=== PATIENT | male | born 1960 | race Caucasian/White ===

== ENCOUNTER 2018-05-13 17:47 | Emergency (ER) | payer BC ==
[2018-05-13 18:22] VITALS: RESP 16
[2018-05-13] MEDS ORDERED: MORPHINE SULFATE 2 MG/ML SYRINGE IVP STA (19:22)
[2018-05-13] MEDS ORDERED: KETOROLAC 30 MG/ML 1 ML VIAL IVP STA (19:22)
[2018-05-13] MEDS ORDERED: ACETAMINOPHEN TAB 500 MG TAB PO STA (19:22)
[2018-05-13] MEDS ORDERED: SODIUM CHLORIDE 0.9% 1,000 ML IV STA ×2 (19:22)
--- NOTE | 2018-05-13 19:31 | ED ---
Abdominal Pain HPI - General Source: patient, RN notes reviewed, old records reviewed Mode of arrival: ambulatory Limitations: no limitations <Lorena Arvizu - Last Filed: 05/13/18 20:41> <Emile Allison - Last Filed: 05/13/18 22:58> - General Chief Complaint: Abdominal Pain Stated Complaint: abd pain Time Seen by Provider: 05/13/18 19:10 - History of Present Illness Initial Comments: Patient is 57-year-old male with chief complaint of 3-4 days of left lower quadrant abdominal pain. He believes he has a flareup of his colitis. He's had intermittent fevers and chills. Reports she's had no dietary changes. He does state that he does travel a lot for work. He states that he did have some diarrhea and questions if it was bloody. Patient presents is generally healthy and no significant past medical history besides colitis. Patient arrives to emergency Department with fever 101. No vomiting. (Lorena Arvizu) - Related Data Home Medications Medication Instructions Recorded Confirmed Ibuprofen [Motrin Ib] 1,000 mg PO TID PRN 05/13/18 05/13/18 Previous Rx's Medication Instructions Recorded Ciprofloxacin HCl [Cipro] 500 mg PO Q12HR #14 tablet 05/13/18 metroNIDAZOLE [Flagyl] 500 mg PO TID #21 tab 05/13/18 Allergies Allergy/AdvReac Type Severity Reaction Status Date / Time codeine Allergy Unknown Verified 05/13/18 19:10 Review of Systems ROS Other: All systems not noted in ROS Statement are negative. <Lorena Arvizu - Last Filed: 05/13/18 20:41> ROS Other: All systems not noted in ROS Statement are negative. <Emile Allison - Last Filed: 05/13/18 22:58> ROS Statement: Those systems with pertinent positive or pertinent negative responses have been documented in the HPI. Past Medical History Additional Past Medical History / Comment(s): COLITIS History of Any Multi-Drug Resistant Organisms: None Reported Past Surgical History: No Surgical Hx Reported Past Psychological History: No Psychological Hx Reported Smoking Status: Current every day smoker Past Alcohol Use History: Daily Past Drug Use History: Marijuana <Lorena Arvizu - Last Filed: 05/13/18 20:41> General Exam Limitations: no limitations General appearance: alert, in no apparent distress Head exam: Present: atraumatic, normocephalic, normal inspection Eye exam: Present: normal appearance ENT exam: Present: normal exam, mucous membranes moist Neck exam: Present: normal inspection. Absent: tenderness, meningismus, lymphadenopathy Respiratory exam: Present: normal lung sounds bilaterally. Absent: respiratory distress, wheezes, rales, rhonchi, stridor Cardiovascular Exam: Present: regular rate, normal rhythm, normal heart sounds. Absent: systolic murmur, diastolic murmur, rubs, gallop, clicks GI/Abdominal exam: Present: soft, tenderness (Left lower quadrant suprapubic tenderness.), normal bowel sounds. Absent: distended, guarding, rebound, rigid Extremities exam: Present: normal inspection, full ROM, normal capillary refill. Absent: tenderness, pedal edema, joint swelling, calf tenderness Back exam: Present: normal inspection Neurological exam: Present: alert, oriented X3, CN II-XII intact Psychiatric exam: Present: normal affect, normal mood Skin exam: Present: warm, dry, intact, normal color. Absent: rash <Lorena Arvizu - Last Filed: 05/13/18 20:41> <Emile Allison - Last Filed: 05/13/18 22:58> - General Exam Comments Initial Comments: This patient's a 57-year-old male. Alert and oriented. Patient appears in no significant distress. Temperature 101.1. Heart rate of 112 bpm. Respiratory rate 16. Blood pressure 134/81. Pulse ox is 92% on room air. (Lorena Arvizu) Vital Signs 05/13/18 05/13/18 05/13/18 18:19 19:40 20:00 Temperature 99.2 F 101.1 F H Pulse Rate 112 H Respiratory 16 16 Rate Blood Pressure 134/86 134/81 134/81 O2 Sat by Pulse 95 92 L 94 L Oximetry 05/13/18 05/13/18 21:00 21:43 Temperature 98.5 F Pulse Rate Respiratory Rate Blood Pressure 143/86 O2 Sat by Pulse Oximetry Medical Decision Making - Lab Data Result diagrams: 05/13/18 19:35 05/13/18 19:35 <Lorena Arvizu - Last Filed: 05/13/18 20:41> - Lab Data Result diagrams: 05/13/18 19:35 05/13/18 19:35 <Emile Allison - Last Filed: 05/13/18 22:58> - Medical Decision Making This patient is a 57-year-old man with abdominal pain. His symptoms have improved markedly. When I reevaluate him he is declining any further analgesia , he is not having tenderness on the abdominal exam. The computed tomography scan does show probable colitis versus possible diverticulitis. Patient be given course of antibiotics and follow with the circuit clerk. We discussed appropriate further care and follow-up as well as return parameters. All questions answered. He does want to go home at this point. I saw this patient in conjunction with the physician surgical assistant certified. I performed independent history and physical exam. Agree with case management. (Emile Allison) - Lab Data Lab Results 05/13/18 05/13/18 05/13/18 Range/Units 19:35 19:35 19:35 WBC (3.8-10.6) k/uL RBC (4.30-5.90) m/uL Hgb (13.0-17.5) gm/dL Hct (39.0-53.0) % MCV (80.0-100.0) fL MCH (25.0-35.0) pg MCHC (31.0-37.0) g/dL RDW (11.5-15.5) % Plt Count (150-450) k/uL Neutrophils % % Lymphocytes % % Monocytes % % Eosinophils % % Basophils % % Neutrophils # (1.3-7.7) k/uL Lymphocytes # (1.0-4.8) k/uL Monocytes # (0-1.0) k/uL Eosinophils # (0-0.7) k/uL Basophils # (0-0.2) k/uL PT 10.2 (9.0-12.0) sec INR 1.0 (<1.2) APTT 26.8 (22.0-30.0) sec Sodium 140 (137-145) mmol/L Potassium 4.0 (3.5-5.1) mmol/L Chloride 109 H (98-107) mmol/L Carbon Dioxide 22 (22-30) mmol/L Anion Gap 9 mmol/L BUN 22 H (9-20) mg/dL Creatinine 1.09 (0.66-1.25) mg/dL Est GFR (CKD-EPI)AfAm 88 (>60 ml/min/1.73 sqM) Est GFR (CKD-EPI)NonAf 76 (>60 ml/min/1.73 sqM) Glucose 102 H (74-99) mg/dL Plasma Lactic Acid Walter 1.0 (0.7-2.0) mmol/L Calcium 9.3 (8.4-10.2) mg/dL Total Bilirubin 0.5 (0.2-1.3) mg/dL AST 23 (17-59) U/L ALT 27 (21-72) U/L Alkaline Phosphatase 59 (38-126) U/L Total Protein 7.5 (6.3-8.2) g/dL Albumin 4.4 (3.5-5.0) g/dL Amylase 64 (30-110) U/L Lipase 93 (23-300) U/L Urine Color Urine Appearance (Clear) Urine pH (5.0-8.0) Ur Specific [place] (1.001-1.035) Urine Protein (Negative) Urine Glucose (UA) (Negative) Urine Ketones (Negative) Urine Blood (Negative) Urine Nitrite (Negative) Urine Bilirubin (Negative) Urine Urobilinogen (<2.0) mg/dL Ur Leukocyte Esterase (Negative) Urine RBC (0-5) /hpf Urine WBC (0-5) /hpf 05/13/18 05/13/18 Range/Units 19:35 20:22 WBC 14.1 H (3.8-10.6) k/uL RBC 5.03 (4.30-5.90) m/uL Hgb 15.9 (13.0-17.5) gm/dL Hct 46.5 (39.0-53.0) % MCV 92.4 (80.0-100.0) fL MCH 31.6 (25.0-35.0) pg MCHC 34.1 (31.0-37.0) g/dL RDW 13.3 (11.5-15.5) % Plt Count 245 (150-450) k/uL Neutrophils % 75 % Lymphocytes % 17 % Monocytes % 5 % Eosinophils % 3 % Basophils % 0 % Neutrophils # 10.6 H (1.3-7.7) k/uL Lymphocytes # 2.3 (1.0-4.8) k/uL Monocytes # 0.7 (0-1.0) k/uL Eosinophils # 0.4 (0-0.7) k/uL Basophils # 0.0 (0-0.2) k/uL PT (9.0-12.0) sec INR (<1.2) APTT (22.0-30.0) sec Sodium (137-145) mmol/L Potassium (3.5-5.1) mmol/L Chloride (98-107) mmol/L Carbon Dioxide (22-30) mmol/L Anion Gap mmol/L BUN (9-20) mg/dL Creatinine (0.66-1.25) mg/dL Est GFR (CKD-EPI)AfAm (>60 ml/min/1.73 sqM) Est GFR (CKD-EPI)NonAf (>60 ml/min/1.73 sqM) Glucose (74-99) mg/dL Plasma Lactic Acid Walter (0.7-2.0) mmol/L Calcium (8.4-10.2) mg/dL Total Bilirubin (0.2-1.3) mg/dL AST (17-59) U/L ALT (21-72) U/L Alkaline Phosphatase (38-126) U/L Total Protein (6.3-8.2) g/dL Albumin (3.5-5.0) g/dL Amylase (30-110) U/L Lipase (23-300) U/L Urine Color Yellow Urine Appearance Clear (Clear) Urine pH 5.5 (5.0-8.0) Ur Specific [place] 1.019 (1.001-1.035) Urine Protein Negative (Negative) Urine Glucose (UA) Negative (Negative) Urine Ketones 1+ H (Negative) Urine Blood Small H (Negative) Urine Nitrite Negative (Negative) Urine Bilirubin Negative (Negative) Urine Urobilinogen <2.0 (<2.0) mg/dL Ur Leukocyte Esterase Negative (Negative) Urine RBC 2 (0-5) /hpf Urine WBC 1 (0-5) /hpf Disposition <Lorena Arvizu - Last Filed: 05/13/18 20:41> Is patient prescribed a controlled substance at d/c from ED?: No <Emile Allison - Last Filed: 05/13/18 22:58> Clinical Impression: Colitis, Abdominal pain Disposition: HOME SELF-CARE Condition: Good Instructions: Abdominal Pain (ED), Colitis (ED) Prescriptions: Ciprofloxacin HCl [Cipro] 500 mg PO Q12HR #14 tablet metroNIDAZOLE [Flagyl] 500 mg PO TID #21 tab Referrals: Kemal Young MD [Primary Care Provider] - 1-2 days Chaz Ponce MD [STAFF PHYSICIAN] - 1-2 days
[2018-05-13 19:51] LABS: Basophils % (A) 0 %; Eosinophils # (A) 0.4 k/uL (0-0.7); Eosinophils % (A) 3 %; HCT 46.5 % (39.0-53.0); HGB 15.9 gm/dL (13.0-17.5); Lymphocytes # (A) 2.3 k/uL (1.0-4.8); Lymphocytes % (A) 17 %; MCH 31.6 pg (25.0-35.0); MCHC 34.1 g/dL (31.0-37.0); MCV 92.4 fL (80.0-100.0); Mean Platelet Volume 6.7; Monocytes # (A) 0.7 k/uL (0-1.0); Monocytes % (A) 5 %; Neutrophils # (A) 10.6 k/uL (1.3-7.7); Neutrophils % (A) 75 %; Platelet Count 245 k/uL (150-450); RBC 5.03 m/uL (4.30-5.90); RDW 13.3 % (11.5-15.5); WBC 14.1 k/uL (3.8-10.6)
[2018-05-13 20:00] LABS: Partial Thromboplastin Time 26.8 sec (22.0-30.0); Prothrombin Time 10.2 sec (9.0-12.0)
[2018-05-13 20:03] LABS: Albumin 4.4 g/dL (3.5-5.0); Calcium 9.3 mg/dL (8.4-10.2); Total Bilirubin 0.5 mg/dL (0.2-1.3); Total Protein 7.5 g/dL (6.3-8.2)
[2018-05-13 20:35] LABS: Appearance,Urine Clear (Clear); Bilirubin,Urine Negative (Negative); Blood,Urine Small (Negative); Color,Urine Yellow; Glucose,Urine (UA) Negative (Negative); Ketones,Urine 1+ (Negative); Leukocyte Esterase,Urine Negative (Negative); Nitrite,Urine Negative (Negative); PH, Urine 5.5 (5.0-8.0); Protein,Urine Negative (Negative); RBC,Urine 2 /hpf (0-5); Specific Gravity,Urine 1.019 (1.001-1.035); Urobilinogen,Urine <2.0 mg/dL (<2.0); WBC,Urine 1 /hpf (0-5)
--- NOTE | 2018-05-13 21:14 | CT ---
EXAMINATION TYPE: CT abdomen pelvis w con DATE OF EXAM: 05/13/2018 COMPARISON: 10/11/2009 HISTORY: Abdominal pain CT DLP: mGycm Automated exposure control for dose reduction was used. TECHNIQUE: Helical acquisition of images was performed from the lung bases through the pelvis. CONTRAST: The contrast was Isovue 100 mL. FINDINGS: There is mild subsegmental atelectasis at the lung bases. Heart size is normal. Liver shows no focal defect. Spleen appears normal. There is no pancreatic mass. Gallbladder appears normal. Bile ducts are not dilated. There is no adrenal mass. Kidneys show satisfactory contrast opacification. There is no hydronephrosi s. Ureters are not dilated. There is no retroperitoneal adenopathy. Abdominal aorta shows mild athero matous change. There is no inguinal hernia. Bladder distends smoothly. There is no pelvic mass. There are small inguinal hernia that contains fat. There is no evidence of a bowel obstruction. Appendix appears normal. There is some fat stranding in the rectosigmoid colon. There is mild wall thickening of the rectosigmoid colon. There are a few dive rticula. The lumbar vertebra have normal alignment. There is no compression fracture. There is multilevel spon dylotic change. The bony pelvis appears intact. There is no mesenteric adenopathy. There is no ascites. There is no sign of free air. IMPRESSION: There is diffuse thickening of the rectosigmoid colon with fat stranding consistent with colitis that is similar to the old exam. Diverticulitis is possible. No evidence of an abscess.
[2018-05-13] MEDS ORDERED: LEVOFLOXACIN 750 MG TAB PO STA (22:50)
[2018-05-13] MEDS ORDERED: metroNIDAZOLE 500 MG TAB PO STA (22:50)
[2018-05-13 23:22] VITALS: BP 111/67; PULSE 77; TEMP 98.3
== END 2018-05-13 23:29 | disposition home or self-care (01) ==
LOC: EC 17:47
DX: K52.9 Noninfective gastroenteritis and colitis, unspecified (principal); F17.200 Nicotine dependence, unspecified, uncomplicated; Z88.5 Allergy status to narcotic agent
CPT/HCPCS: 36415; 80053; 82150; 83605; 83690; 85025; 85610; 85730; 81001; 87040; 74177; 99285; 96365; 96375 ×2; 96361 ×3; J0696; J1885; J2270; Q9967

== ENCOUNTER 2023-09-30 18:05 | Emergency (ER) | payer BC, OTHER ==
--- NOTE | 2023-09-30 18:20 | ED ---
Abdominal Pain HPI - General Source: patient, family, RN notes reviewed Mode of arrival: ambulatory Limitations: no limitations <Teresa Mitchell - Last Filed: 09/30/23 18:19> - General Source: patient, RN notes reviewed, old records reviewed <Josh Carty - Last Filed: 09/30/23 20:54> <Aly Young - Last Filed: 09/30/23 22:57> - General Stated Complaint: Abdominal Pain Time Seen by Provider: 09/30/23 18:19 - History of Present Illness Initial Comments: Patient: Patient is a 62-year-old male presented to the ER with a chief complaint of lower abdominal pain. He states he has a history of colitis and reports he ate bad chicken yesterday. He has not eaten anything in the past 24 hours. He states he is also had not had a bowel movement. Denies any fevers, chills, nausea, vomiting. (Teresa Mitchell) Patient is a 62-year-old male that was originally evaluated as a quick note. Presents emergency department complaining of lower abdominal pain. Has a history of colitis and believes this is what is causing it. Denies any fevers or chills. Endorses some diarrhea as well as nausea and nonbilious nonbloody emesis. Also endorses no blood in his stool. He is not on thinners. Pain has been present for 1 day. Has less of an appetite. Presents for further evaluation. (Josh Carty) - Related Data Home Medications Medication Instructions Recorded Confirmed Ibuprofen [Motrin Ib] 1,000 mg PO TID PRN 05/13/18 05/13/18 Previous Rx's Medication Instructions Recorded Ciprofloxacin HCl [Cipro] 500 mg PO Q12HR #14 tablet 05/13/18 metroNIDAZOLE [Flagyl] 500 mg PO TID #21 tab 05/13/18 HYDROcodone/APAP 5-325MG [Thiells 1 tab PO Q6HR PRN 3 Days #12 tab 09/30/23 5-325] Allergies Allergy/AdvReac Type Severity Reaction Status Date / Time codeine Allergy Unknown Verified 05/13/18 19:10 Review of Systems ROS Other: All systems not noted in ROS Statement are negative. <Teresa Mitchell - Last Filed: 09/30/23 18:19> ROS Other: All systems not noted in ROS Statement are negative. <Josh Carty - Last Filed: 09/30/23 20:54> ROS Other: All systems not noted in ROS Statement are negative. <Aly Young - Last Filed: 09/30/23 22:57> ROS Statement: Those systems with pertinent positive or pertinent negative responses have been documented in the HPI. Review of Systems: CONST: Denies fever EYES: Denies blurry vision ENT: Denies nasal congestion C/V: Denies Chest pain RESP: Denies shortness of breath GI: Endorses abdominal pain : Denies dysuria SKIN: Denies rash. MSK: Denies joint pain. NEURO: Denies headache (Josh Carty) Past Medical History Additional Past Medical History / Comment(s): COLITIS History of Any Multi-Drug Resistant Organisms: None Reported Past Surgical History: No Surgical Hx Reported Past Psychological History: No Psychological Hx Reported Past Alcohol Use History: Daily Past Drug Use History: Marijuana <Teresa Mitchell - Last Filed: 09/30/23 18:19> General Exam <Teresa Mitchell - Last Filed: 09/30/23 18:19> <Josh Carty - Last Filed: 09/30/23 20:54> - General Exam Comments Initial Comments: Visual Physical Exam Vital signs reviewed General: Well-appearing, nontoxic, no acute distress. Head: Normocephalic, atraumatic Eyes: PERRLA, EOMI ENT: Airway patent Chest: Nonlabored breathing Skin: No visual rash, normal skin tone Neuro: Alert and oriented 3 Musculoskeletal: No gross abnormalities (Teresa Mitchell) General: Appears in mild distress. HEAD: Normal with no signs of head trauma. EYES: PERRLA, EOMI, conjunctiva normal, no discharge. ENT: Hearing grossly intact, normal oropharynx. RESPIRATORY: Clear breath sounds bilaterally. No wheezes, rales, or rhonchi. C/V: Regular rate and rhythm. S1 and S2 auscultated, no edema, peripheral pulses 2+ and intact throughout ABD: Abdomen soft, nondistended. Tender to palpation bilateral lower quadrants and suprapubic region. No guarding. No rebound tenderness. No peritoneal signs. EXT: Normal range of motion, no obvious deformity SKIN: No rashes or lesions observed on exposed skin. NEURO: Alert and oriented x 4. (Josh Carty) Course Vital Signs 09/30/23 09/30/23 09/30/23 18:28 20:47 21:50 Temperature 98 F Pulse Rate 101 H 64 79 Respiratory 20 26 H 13 Rate Blood Pressure 136/76 119/84 116/85 O2 Sat by Pulse 95 96 97 Oximetry Medical Decision Making <Teresa Mitchell - Last Filed: 09/30/23 18:19> - Lab Data Result diagrams: 09/30/23 18:39 09/30/23 18:39 <Josh Carty - Last Filed: 09/30/23 20:54> - Lab Data Result diagrams: 09/30/23 18:39 09/30/23 18:39 <Aly Young - Last Filed: 09/30/23 22:57> - Medical Decision Making I performed the quick note portion of this chart. Electronically signed by Teresa Mitchell PA-C (Teresa Mitchell) Was pt. sent in by a medical professional or institution ([facility], [facility], urgent care, hospital, or senior care...) When possible be specific @ -No Did you speak to anyone other than the patient for history (EMS, parent, family, police, friend...)? What history was obtained from this source @ -No Did you review nursing and triage notes (agree or disagree)? Why? @ -I reviewed and agree with nursing and triage notes Were old charts reviewed (outside hosp., previous admission, EMS record, old EKG, old radiological studies, urgent care reports/EKG's, senior care records)? Report findings @ -Old charts reviewed Differential Diagnosis (chest pain, altered mental status, abdominal pain women, abdominal pain men, vaginal bleeding, weakness, fever, dyspnea, syncope, headache, dizziness, GI bleed, back pain, seizure, CVA, palpatations, mental health, musculoskeletal)? @ -Differential Abdominal Pain Men: Appendicitis, cholecystitis, diverticulosis, ischemic bowel, pancreatitis, hepatitis, UTI, gastroenteritis, AAA, incarcerated hernia, bowel obstruction, constipation, inflammatory bowel, hepatitis, peptic ulcer disease, splenic infarction, perforated viscus, testicular torsion, this is not meant to be an all-inclusive list EKG interpreted by me (3pts min.). @ -As above X-rays interpreted by me (1pt min.). @ -None done CT interpreted by me (1pt min.). @ -Pending U/S interpreted by me (1pt. min.). @ -None done What testing was considered but not performed or refused? (CT, X-rays, U/S, labs)? Why? @ -None What meds were considered but not given or refused? Why? @ -None Did you discuss the management of the patient with other professionals (professionals i.e. , PA, [facility], lab, RT, psych nurse, social media strategist, transportation planning engineer, teacher, guest services officer, returned case inspector)? Give summary @ -No Was smoking cessation discussed for >3mins.? @ -No Was critical care preformed (if so, how long)? @ -No Were there social determinants of health that impacted care today? How? (Homelessness, low income, unemployed, alcoholism, drug addiction, transportation, low edu. Level, literacy, decrease access to med. care, prison, rehab)? @ -No Was there de-escalation of care discussed even if they declined (Discuss DNR or withdrawal of care, Hospice)? DNR status @ -No What co-morbidities impacted this encounter? (DM, HTN, Smoking, COPD, CAD, Cancer, CVA, ARF, Chemo, Hep., AIDS, mental health diagnosis, sleep apnea, morbid obesity)? @ -Colitis Was patient admitted / discharged? Hospital course, mention meds given and route, prescriptions, significant lab abnormalities, going to OR and other pertinent info. @ -Based on patient's presentation and physical exam, presents with lower abdominal pain. Started yesterday. Exam unremarkable. Workup started as a quick note. Patient will be symptomatically treated with IV fluids, Zofran, Protonix, morphine. Will obtain a CT abdomen pelvis as well. Patient was in agreement this plan. Patient's laboratory studies are remarkable for slight leukocytosis of 11.6. Remainder the laboratory studies unremarkable. CT read is pending at this time. Signed out to Dr. Young pending results of imaging. Undiagnosed new problem with uncertain prognosis? @ -No Drug Therapy requiring intensive monitoring for toxicity (Heparin, Nitro, Insulin, Cardizem)? @ -No Were any procedures done? @ -No (Josh Carty) Patient care signed out to me by previous shift physician, Dr. Carty. Briefly, patient 62-year-old male with history of colitis presents to the emergency department for abdominal pain. Labs are unremarkable. Patient given analgesics. Plan at signout was to follow-up with pending imaging. CT abdomen pelvis read by radiology and reviewed by myself showing colitis. Patient reevaluated at bedside at 10:55 PM. He has a nonsurgical abdomen on repeat abdominal exam. Patient well-appearing. Disposition options are discussed. He is agreeable for discharge. Patient does not have a primary care doctor. Patient given referral to primary care doctor and also referral to GI specialist. He has had a colonoscopy 3 years ago which he reports was unremarkable. (Aly Young) - Lab Data Lab Results 09/30/23 09/30/23 09/30/23 Range/Units 18:39 18:39 18:39 WBC 11.6 H (3.8-10.6) k/uL RBC 4.25 L (4.30-5.90) m/uL Hgb 14.0 (13.0-17.5) gm/dL Hct 40.3 (39.0-53.0) % MCV 94.7 (80.0-100.0) fL MCH 33.0 (25.0-35.0) pg MCHC 34.8 (31.0-37.0) g/dL RDW 12.5 (11.5-15.5) % Plt Count 215 (150-450) k/uL MPV 8.1 Neutrophils % 82 % Lymphocytes % 12 % Monocytes % 4 % Eosinophils % 1 % Basophils % 0 % Neutrophils # 9.4 H (1.3-7.7) k/uL Lymphocytes # 1.4 (1.0-4.8) k/uL Monocytes # 0.5 (0-1.0) k/uL Eosinophils # 0.1 (0-0.7) k/uL Basophils # 0.0 (0-0.2) k/uL Sodium 136 L (137-145) mmol/L Potassium 3.8 (3.5-5.1) mmol/L Chloride 106 (98-107) mmol/L Carbon Dioxide 21 L (22-30) mmol/L Anion Gap 9 mmol/L BUN 14 (9-20) mg/dL Creatinine 0.81 (0.66-1.25) mg/dL Est GFR (CKD-EPI)AfAm >90 (>60 ml/min/1.73 sqM) Est GFR (CKD-EPI)NonAf >90 (>60 ml/min/1.73 sqM) Glucose 112 H (74-99) mg/dL Plasma Lactic Acid Walter (0.7-2.0) mmol/L Calcium 8.8 (8.4-10.2) mg/dL Total Bilirubin 0.8 (0.2-1.3) mg/dL AST 21 (17-59) U/L ALT 16 (4-49) U/L Alkaline Phosphatase 79 (38-126) U/L Total Protein 6.7 (6.3-8.2) g/dL Albumin 4.0 (3.5-5.0) g/dL Amylase 52 (30-110) U/L Lipase 48 (23-300) U/L Urine Color Yellow Urine Appearance Clear (Clear) Urine pH 5.5 (5.0-8.0) Ur Specific [place] 1.021 (1.001-1.035) Urine Protein Trace H (Negative) Urine Glucose (UA) Negative (Negative) Urine Ketones 1+ H (Negative) Urine Blood Small H (Negative) Urine Nitrite Negative (Negative) Urine Bilirubin Negative (Negative) Urine Urobilinogen <2.0 (<2.0) mg/dL Ur Leukocyte Esterase Negative (Negative) Urine RBC 1 (0-5) /hpf Urine WBC 2 (0-5) /hpf Ur Squamous Epith Cells <1 (0-4) /hpf Urine Mucus Occasional H (None) /hpf 09/30/23 Range/Units 18:39 WBC (3.8-10.6) k/uL RBC (4.30-5.90) m/uL Hgb (13.0-17.5) gm/dL Hct (39.0-53.0) % MCV (80.0-100.0) fL MCH (25.0-35.0) pg MCHC (31.0-37.0) g/dL RDW (11.5-15.5) % Plt Count (150-450) k/uL MPV Neutrophils % % Lymphocytes % % Monocytes % % Eosinophils % % Basophils % % Neutrophils # (1.3-7.7) k/uL Lymphocytes # (1.0-4.8) k/uL Monocytes # (0-1.0) k/uL Eosinophils # (0-0.7) k/uL Basophils # (0-0.2) k/uL Sodium (137-145) mmol/L Potassium (3.5-5.1) mmol/L Chloride (98-107) mmol/L Carbon Dioxide (22-30) mmol/L Anion Gap mmol/L BUN (9-20) mg/dL Creatinine (0.66-1.25) mg/dL Est GFR (CKD-EPI)AfAm (>60 ml/min/1.73 sqM) Est GFR (CKD-EPI)NonAf (>60 ml/min/1.73 sqM) Glucose (74-99) mg/dL Plasma Lactic Acid Walter 0.9 (0.7-2.0) mmol/L Calcium (8.4-10.2) mg/dL Total Bilirubin (0.2-1.3) mg/dL AST (17-59) U/L ALT (4-49) U/L Alkaline Phosphatase (38-126) U/L Total Protein (6.3-8.2) g/dL Albumin (3.5-5.0) g/dL Amylase (30-110) U/L Lipase (23-300) U/L Urine Color Urine Appearance (Clear) Urine pH (5.0-8.0) Ur Specific [place] (1.001-1.035) Urine Protein (Negative) Urine Glucose (UA) (Negative) Urine Ketones (Negative) Urine Blood (Negative) Urine Nitrite (Negative) Urine Bilirubin (Negative) Urine Urobilinogen (<2.0) mg/dL Ur Leukocyte Esterase (Negative) Urine RBC (0-5) /hpf Urine WBC (0-5) /hpf Ur Squamous Epith Cells (0-4) /hpf Urine Mucus (None) /hpf Disposition <Teresa Mitchell - Last Filed: 09/30/23 18:19> <Josh Carty - Last Filed: 09/30/23 20:54> Is patient prescribed a controlled substance at d/c from ED?: Yes If prescribed controlled substance>3 days was MAPS reviewed?: Prescribed <3 Days Time of Disposition: 22:56 <Aly Young - Last Filed: 09/30/23 22:57> Clinical Impression: Colitis Disposition: HOME SELF-CARE Condition: Good Instructions (If sedation given, give patient instructions): Colitis (ED) Prescriptions: HYDROcodone/APAP 5-325MG [[place] 5-325] 1 tab PO Q6HR PRN 3 Days #12 tab PRN Reason: Severe Pain Referrals: Andre Fields DO [REFERRING] - 1-2 days Bell Jovel MD [STAFF PHYSICIAN] - 1-2 days
[2023-09-30 18:57] VITALS: TEMP 98
[2023-09-30 19:13] LABS: Appearance,Urine Clear (Clear); Bilirubin,Urine Negative (Negative); Blood,Urine Small (Negative); Color,Urine Yellow; Glucose,Urine (UA) Negative (Negative); Ketones,Urine 1+ (Negative); Leukocyte Esterase,Urine Negative (Negative); Mucus,Urine Occasional /hpf; Nitrite,Urine Negative (Negative); PH, Urine 5.5 (5.0-8.0); Protein,Urine Trace (Negative); RBC,Urine 1 /hpf (0-5); Specific Gravity,Urine 1.021 (1.001-1.035); Squamous Epithelial Cell,Urine <1 /hpf (0-4); Urobilinogen,Urine <2.0 mg/dL (<2.0); WBC,Urine 2 /hpf (0-5)
[2023-09-30 19:16] LABS: Basophils % (A) 0 %; Eosinophils # (A) 0.1 k/uL (0-0.7); Eosinophils % (A) 1 %; HCT 40.3 % (39.0-53.0); Lymphocytes # (A) 1.4 k/uL (1.0-4.8); Lymphocytes % (A) 12 %; MCHC 34.8 g/dL (31.0-37.0); MCV 94.7 fL (80.0-100.0); Mean Platelet Volume 8.1; Monocytes # (A) 0.5 k/uL (0-1.0); Monocytes % (A) 4 %; Neutrophils # (A) 9.4 k/uL (1.3-7.7); Neutrophils % (A) 82 %; Platelet Count 215 k/uL (150-450); RBC 4.25 m/uL (4.30-5.90); RDW 12.5 % (11.5-15.5); WBC 11.6 k/uL (3.8-10.6)
[2023-09-30 19:17] LABS: ALT 16 U/L (4-49); AST 21 U/L (17-59); African American GFR (CKD) >90 (>60 ml/min/1.73 sqM); Alkaline Phosphatase 79 U/L (38-126); Amylase 52 U/L (30-110); Anion Gap 9 mmol/L; Blood Urea Nitrogen 14 mg/dL (9-20); Calcium 8.8 mg/dL (8.4-10.2); Carbon Dioxide 21 mmol/L (22-30); Chloride 106 mmol/L (98-107); Glucose 112 mg/dL (74-99); Lipase 48 U/L (23-300); Non-African American GFR(CKD) >90 (>60 ml/min/1.73 sqM); Potassium 3.8 mmol/L (3.5-5.1); Sodium 136 mmol/L (137-145); Total Bilirubin 0.8 mg/dL (0.2-1.3); Total Protein 6.7 g/dL (6.3-8.2)
[2023-09-30] MEDS: ONDANSETRON 4 MG/2 ML VIAL IVP STA (20:38)
[2023-09-30] MEDS: MORPHINE SULFATE 4 MG/ML SYRINGE IVP STA (20:39)
[2023-09-30] MEDS: SODIUM CHLORIDE 0.9% 1,000 ML IV STA (20:39)
[2023-09-30] MEDS: PANTOPRAZOLE 40 MG/10 ML VIAL IVP STA (20:39)
[2023-09-30 22:04] VITALS: RESP 13
--- NOTE | 2023-09-30 22:29 | CT ---
EXAMINATION TYPE: CT abdomen pelvis w con CT DLP: 1066.9 mGycm, Automated exposure control for dose reduction was used. DATE OF EXAM: 09/30/2023 7:55 PM COMPARISON: None. CLINICAL INDICATION:Male, 62 years old with history of abdominal pain; Lower abdominal pain. History of colitis. TECHNIQUE: Axial CT of the abdomen and pelvis. Sagittal and coronal reformats were created on a [employer] workstation. Contrast used:100 ml mL of Isovue 370 with IV Contrast, (none if empty) Oral contrast used: without Oral Contrast (none if empty) FINDINGS: LOWER CHEST: Mild dependent atelectatic changes without acute lung infiltrate. Normal heart size. Par tially visualized moderate coronary artery calcifications. Small sliding hiatal hernia. ABDOMEN LIVER: Unremarkable GALLBLADDER AND BILE DUCTS: Unremarkable gallbladder. No biliary ductal dilatation. PANCREAS: Unremarkable. SPLEEN: Unremarkable. ADRENAL GLANDS: Unremarkable. KIDNEYS AND URETERS: Kidneys enhance symmetrically. No evidence of hydronephrosis or visible renal ca lculus. The ureters are unremarkable. PELVIS BLADDER: Nondistended with a mildly thickened appearance of its wall. REPRODUCTIVE: Nonenlarged prostate with a few parenchymal calcifications. ABDOMEN & PELVIS STOMACH AND BOWEL: Stomach and small bowel are nondistended, no evidence of obstruction. Appendix c ontains some scattered intraluminal gas, does not appear dilated or inflamed. There is mild to modera te stool throughout the proximal aspects of the colon. Beginning near the descending/sigmoid junction , there is relatively long segment wall thickening which extends to near the rectosigmoid junction, w ith mild pericolonic fat stranding, most suggestive of colitis. There are some interspersed diverticu la in this area but these appear less likely to be the cause of these changes. PERITONEUM/RETROPERITONEUM: No evidence of pneumoperitoneum or free fluid. VASCULATURE: Moderate atherosclerotic calcifications are present throughout the abdominal aorta and i ts branches. No evidence of aortic aneurysm. Portal veins are enhancing. Splenic vein is patent. LYMPH NODES: No enlarged lymph nodes by CT criteria. SOFT TISSUE/ABDOMINAL WALL: Small fat-containing bilateral inguinal hernias. MUSCULOSKELETAL: No acute osseous abnormalities. Moderate disc degeneration changes are present throu ghout the thoracolumbar spine with mild levoscoliosis and straightening of the normal lumbar lordosis . IMPRESSION: 1. Findings suggesting nonspecific colitis, present throughout the sigmoid region. Recommend correla tion with findings of colonoscopy when appropriate to exclude any underlying mass. 2. Mildly thickened appearance of the urinary bladder wall, could be due to incomplete distention or bladder wall hypertrophy, but correlate clinically to exclude cystitis.
[2023-09-30 23:38] VITALS: BP 119/74; PULSE 74
== END 2023-09-30 23:14 | disposition home or self-care (01) ==
LOC: EC 18:05
DX: K52.9 Noninfective gastroenteritis and colitis, unspecified (principal); F12.90 Cannabis use, unspecified, uncomplicated; Z88.5 Allergy status to narcotic agent
CPT/HCPCS: 36415; 80053; 82150; 83605; 83690; 85025; 81001; 74177; 99285; 96374; 96375 ×2; 96361; J2270; J2405; C9113; Q9967

== ENCOUNTER 2024-03-13 12:57 | Inpatient (IN) | payer BC ==
--- NOTE | 2024-03-13 13:25 | ED ---
General Adult HPI - General Chief complaint: Chest Pain Stated complaint: Chest pain Time Seen by Provider: 03/13/24 13:06 Source: patient, RN notes reviewed Mode of arrival: ambulatory Limitations: no limitations - History of Present Illness Initial comments: Patient is a 63-year-old male present to the emergency department with concern with chest discomfort. Onset of symptoms was around 3 weeks ago. Symptoms have been intermittent. Symptoms are exertional. Discomfort feels like pressure or tightness with some radiation towards the back. No associated dyspnea. Patient has had some nausea. No diaphoresis. No history of similar symptoms pre viously. Discomfort currently is 1/10. When severe discomfort does get up to 8 or 9/10. - Related Data Home Medications Medication Instructions Recorded Confirmed Ibuprofen [Motrin Ib] 1,000 mg PO TID PRN 05/13/18 05/13/18 Previous Rx's Medication Instructions Recorded Ciprofloxacin HCl [Cipro] 500 mg PO Q12HR #14 tablet 05/13/18 metroNIDAZOLE [Flagyl] 500 mg PO TID #21 tab 05/13/18 HYDROcodone/APAP 5-325MG [[place] 1 tab PO Q6HR PRN 3 Days #12 tab 09/30/23 5-325] Allergies Allergy/AdvReac Type Severity Reaction Status Date / Time codeine Allergy Unknown Verified 03/13/24 13:00 Review of Systems ROS Statement: Those systems with pertinent positive or pertinent negative responses have been documented in the HPI. ROS Other: All systems not noted in ROS Statement are negative. Constitutional: Denies: fever Eyes: Denies: eye pain ENT: Denies: ear pain Respiratory: Denies: cough Cardiovascular: Reports: as per HPI, chest pain Gastrointestinal: Reports: nausea. Denies: abdominal pain Musculoskeletal: Reports: as per HPI Past Medical History Additional Past Medical History / Comment(s): COLITIS, gout History of Any Multi-Drug Resistant Organisms: None Reported Past Surgical History: No Surgical Hx Reported Past Psychological History: No Psychological Hx Reported Past Alcohol Use History: Daily Past Drug Use History: Marijuana General Exam Limitations: no limitations General appearance: alert, in no apparent distress Head exam: Present: normocephalic Eye exam: Present: normal appearance Neck exam: Present: normal inspection Respiratory exam: Present: normal lung sounds bilaterally Cardiovascular Exam: Present: regular rate, normal rhythm, normal heart sounds Expanded Peripheral pulses: 2+: Radial (R), Radial (L), Posterior Tibialis (R), Posterior Tibialis (L) GI/Abdominal exam: Present: soft. Absent: tenderness Extremities exam: Present: normal inspection. Absent: pedal edema, calf tenderness Back exam: Present: normal inspection Neurological exam: Present: alert Psychiatric exam: Present: normal affect, normal mood Skin exam: Present: normal color Course Vital Signs 03/13/24 12:58 Temperature 98.7 F Pulse Rate 98 Respiratory 16 Rate Blood Pressure 145/86 O2 Sat by Pulse 94 L Oximetry EKG Findings - EKG Results: EKG: interpreted by ERMD, sinus rhythm, normal axis, normal QRS, normal ST/T Medical Decision Making - Medical Decision Making Was pt. sent in by a medical professional or institution (, PA, GAS ENGINEER, urgent care, hospital, or prison...) When possible be specific @ -No Did you speak to anyone other than the patient for history (EMS, parent, family, police, friend...)? What history was obtained from this source @ -No Did you review nursing and triage notes (agree or disagree)? Why? @ -I reviewed and agree with nursing and triage notes Were old charts reviewed (outside hosp., previous admission, EMS record, old EKG, old radiological studies, urgent care reports/EKG's, prison records)? Report findings @ -No old charts were reviewed Differential Diagnosis (chest pain, altered mental status, abdominal pain women, abdominal pain men, vaginal bleeding, weakness, fever, dyspnea, syncope, headache, dizziness, GI bleed, back pain, seizure, CVA, palpatations, mental health, musculoskeletal)? @ -Differential Chest Pain: Stable Angina, Unstable Angina, STEMI, NSTEMI Aortic Dissection, Pneumothorax, Musculoskeletal, Esophageal Spasm GERD, Cholecystitis, Pancreatitis, Zoster, this is not meant to be an all-inclusive list. EKG interpreted by me (3pts min.). @ -As above X-rays interpreted by me (1pt min.). @ -Chest x-ray does not reveal acute abnormality CT interpreted by me (1pt min.). @ -None done U/S interpreted by me (1pt. min.). @ -None done What testing was considered but not performed or refused? (CT, X-rays, U/S, labs)? Why? @ -None What meds were considered but not given or refused? Why? @ -None Did you discuss the management of the patient with other professionals (professionals i.e. DrRamos, PA, GAS ENGINEER, lab, RT, psych nurse, social insurance adviser, investment broker, teacher, protocol officer, case worker)? Give summary @ -Case was discussed with Dr. Eason who will admit covering hospital call Was smoking cessation discussed for >3mins.? @ -No Was critical care preformed (if so, how long)? @ -32 minutes cc Were there social determinants of health that impacted care today? How? (Homelessness, low income, unemployed, alcoholism, drug addiction, transportation, low edu. Level, literacy, decrease access to med. care, penitentiary, rehab)? @ -No Was there de-escalation of care discussed even if they declined (Discuss DNR or withdrawal of care, Hospice)? DNR status @ -No What co-morbidities impacted this encounter? (DM, HTN, Smoking, COPD, CAD, Cancer, CVA, ARF, Chemo, Hep., AIDS, mental health diagnosis, sleep apnea, morbid obesity)? @ -None Was patient admitted / discharged? Hospital course, mention meds given and route, prescriptions, significant lab abnormalities, going to OR and other pertinent info. @ -Patient presents with progressive symptoms of chest discomfort worse with exertion. Patient has calcifications on CT. Troponin is mildly elevated. Patient will be admitted with cardiac consult, admission orders written. Hepa rin will be started. Undiagnosed new problem with uncertain prognosis? @ -No Drug Therapy requiring intensive monitoring for toxicity (Heparin, Nitro, Insulin, Cardizem)? @ -Drip will be started Were any procedures done? @ -No Diagnosis/symptom? @ -Acute coronary syndrome Acute, or Chronic, or Acute on Chronic? @ -Acute Uncomplicated (without systemic symptoms) or Complicated (systemic symptoms)? @ -Complicated with mild elevation of troponin Side effects of treatment? @ -No Exacerbation, Progression, or Severe Exacerbation? @ -No Poses a threat to life or bodily function? How? (Chest pain, [place], NC, pneumonia, PE, COPD, DKA, ARF, appy, cholecystitis, CVA, Diverticulitis, Homicidal, S uicidal, threat to staff... and all critical care pts) @ -To cardiac function - Lab Data Result diagrams: 03/13/24 13:33 03/13/24 13:33 Lab Results 03/13/24 03/13/24 03/13/24 Range/Units 13:33 13:33 13:33 WBC 6.0 (3.8-10.6) k/uL RBC 4.43 (4.30-5.90) m/uL Hgb 14.9 (13.0-17.5) gm/dL Hct 42.1 (39.0-53.0) % MCV 95.0 (80.0-100.0) fL MCH 33.5 (25.0-35.0) pg MCHC 35.3 (31.0-37.0) g/dL RDW 12.5 (11.5-15.5) % Plt Count 270 (150-450) k/uL MPV 6.9 Neutrophils % 62 % Lymphocytes % 27 % Monocytes % 5 % Eosinophils % 5 % Basophils % 0 % Neutrophils # 3.7 (1.3-7.7) k/uL Lymphocytes # 1.6 (1.0-4.8) k/uL Monocytes # 0.3 (0-1.0) k/uL Eosinophils # 0.3 (0-0.7) k/uL Basophils # 0.0 (0-0.2) k/uL PT 12.0 (10.0-12.5) sec INR 1.1 (<1.2) APTT 28.6 (22.0-30.0) sec D-Dimer 1.32 H (<0.60) mg/L FEU Sodium 138 (137-145) mmol/L Potassium 3.8 (3.5-5.1) mmol/L Chloride 102 (98-107) mmol/L Carbon Dioxide 27 (22-30) mmol/L Anion Gap 9 mmol/L BUN 13 (9-20) mg/dL Creatinine 0.87 (0.66-1.25) mg/dL Est GFR (CKD-EPI)AfAm >90 (>60 ml/min/1.73 sqM) Est GFR (CKD-EPI)NonAf >90 (>60 ml/min/1.73 sqM) Glucose 144 H (74-99) mg/dL Calcium 9.3 (8.4-10.2) mg/dL Magnesium 1.7 (1.6-2.3) mg/dL Total Bilirubin 0.5 (0.2-1.3) mg/dL AST 25 (17-59) U/L ALT 13 (4-49) U/L Alkaline Phosphatase 56 (38-126) U/L Troponin I (0.000-0.034) ng/mL Total Protein 6.7 (6.3-8.2) g/dL Albumin 4.1 (3.5-5.0) g/dL Amylase 52 (30-110) U/L Lipase 85 (23-300) U/L 03/13/24 Range/Units 13:33 WBC (3.8-10.6) k/uL RBC (4.30-5.90) m/uL Hgb (13.0-17.5) gm/dL Hct (39.0-53.0) % MCV (80.0-100.0) fL MCH (25.0-35.0) pg MCHC (31.0-37.0) g/dL RDW (11.5-15.5) % Plt Count (150-450) k/uL MPV Neutrophils % % Lymphocytes % % Monocytes % % Eosinophils % % Basophils % % Neutrophils # (1.3-7.7) k/uL Lymphocytes # (1.0-4.8) k/uL Monocytes # (0-1.0) k/uL Eosinophils # (0-0.7) k/uL Basophils # (0-0.2) k/uL PT (10.0-12.5) sec INR (<1.2) APTT (22.0-30.0) sec D-Dimer (<0.60) mg/L FEU Sodium (137-145) mmol/L Potassium (3.5-5.1) mmol/L Chloride (98-107) mmol/L Carbon Dioxide (22-30) mmol/L Anion Gap mmol/L BUN (9-20) mg/dL Creatinine (0.66-1.25) mg/dL Est GFR (CKD-EPI)AfAm (>60 ml/min/1.73 sqM) Est GFR (CKD-EPI)NonAf (>60 ml/min/1.73 sqM) Glucose (74-99) mg/dL Calcium (8.4-10.2) mg/dL Magnesium (1.6-2.3) mg/dL Total Bilirubin (0.2-1.3) mg/dL AST (17-59) U/L ALT (4-49) U/L Alkaline Phosphatase (38-126) U/L Troponin I 0.057 H* (0.000-0.034) ng/mL Total Protein (6.3-8.2) g/dL Albumin (3.5-5.0) g/dL Amylase (30-110) U/L Lipase (23-300) U/L Critical Care Time Critical Care Time: Yes Disposition Clinical Impression: Chest pain Disposition: ADMITTED IP TO THIS HOSP Is patient prescribed a controlled substance at d/c from ED?: No Referrals: None,Stated [Primary Care Provider] - 1-2 days Time of Disposition: 15:24
[2024-03-13 13:40] LABS: Basophils % (A) 0 %; Eosinophils # (A) 0.3 k/uL (0-0.7); Eosinophils % (A) 5 %; HCT 42.1 % (39.0-53.0); HGB 14.9 gm/dL (13.0-17.5); Lymphocytes # (A) 1.6 k/uL (1.0-4.8); Lymphocytes % (A) 27 %; MCH 33.5 pg (25.0-35.0); MCHC 35.3 g/dL (31.0-37.0); Mean Platelet Volume 6.9; Monocytes # (A) 0.3 k/uL (0-1.0); Monocytes % (A) 5 %; Neutrophils # (A) 3.7 k/uL (1.3-7.7); Neutrophils % (A) 62 %; Platelet Count 270 k/uL (150-450); RBC 4.43 m/uL (4.30-5.90); RDW 12.5 % (11.5-15.5)
[2024-03-13] MEDS: NITROGLYCERIN OINT 1 INCH/GM PACKET TOPICAL STA (13:53)
[2024-03-13] MEDS: ASPIRIN 81 MG PO STA (13:53)
[2024-03-13 13:54] LABS: INR 1.1 (<1.2); Partial Thromboplastin Time 28.6 sec (22.0-30.0)
[2024-03-13 13:59] LABS: ALT 13 U/L (4-49); AST 25 U/L (17-59); African American GFR (CKD) >90 (>60 ml/min/1.73 sqM); Albumin 4.1 g/dL (3.5-5.0); Alkaline Phosphatase 56 U/L (38-126); Amylase 52 U/L (30-110); Anion Gap 9 mmol/L; Blood Urea Nitrogen 13 mg/dL (9-20); Calcium 9.3 mg/dL (8.4-10.2); Carbon Dioxide 27 mmol/L (22-30); Chloride 102 mmol/L (98-107); Glucose 144 mg/dL (74-99); Magnesium 1.7 mg/dL (1.6-2.3); Non-African American GFR(CKD) >90 (>60 ml/min/1.73 sqM); Potassium 3.8 mmol/L (3.5-5.1); Sodium 138 mmol/L (137-145); Total Bilirubin 0.5 mg/dL (0.2-1.3); Total Protein 6.7 g/dL (6.3-8.2)
[2024-03-13 14:00] LABS: Lipase 85 U/L (23-300)
--- NOTE | 2024-03-13 14:42 | XR ---
EXAMINATION TYPE: XR chest 2V DATE OF EXAM: 03/13/2024 COMPARISON: None HISTORY: 63-year-old male with chest pain TECHNIQUE: PA and lateral views FINDINGS: The cardiomediastinal silhouette, aorta, and pulmonary vasculature are within normal limits. Lungs an d pleural spaces are clear. IMPRESSION: No acute cardiopulmonary process.
--- NOTE | 2024-03-13 14:49 | CT ---
EXAMINATION TYPE: CT angio chest DATE OF EXAM: 03/13/2024 COMPARISON: Radiograph same day HISTORY: 63-year-old male chest pain and elevated d-dimer. TECHNIQUE: Contiguous axial scanning of the chest after the administration of 60ml mL of Isovue 370. Coronal/sagittal MIP reconstructions performed. CT DLP: 386.5mGycm. Automatic exposure control utilized for a dose reduction. FINDINGS: The heart is normal size with trace anterior pericardial fluid. Three-vessel coronary artery calcific ations are present. Aorta normal caliber with conventional branching anatomy. There is a prominent 1.1 cm right hilar lymph node probably reactive/post inflammatory. Satisfactory opacification of the pulmonary arterial system without evidence for pulmonary embolus. Some streaky atelectasis at the posterior lung bases. Mild emphysematous change. No consolidation or pleural effusion. Visualized upper abdomen shows no gross abnormality. Bones: Anterior endplate spondylosis mid to lower thoracic spine. IMPRESSION: 1. COPD with mild emphysema. 2. Three-vessel coronary artery calcifications. 3. No evidence for pulmonary embolus.
[2024-03-13] MEDS ORDERED: NITROGLYCERIN SL TABS 0.4 MG TAB SUBLINGUAL PRN (15:24)
[2024-03-13] MEDS ORDERED: ACETAMINOPHEN TAB 325 MG TAB PO PRN (15:38)
[2024-03-13] MEDS ORDERED: HYDROcodone/APAP 5-325MG 1 EACH TAB PO PRN (15:38)
[2024-03-13] MEDS ORDERED: NALOXONE 0.4 MG/ML 1 ML VIAL IVP PRN (15:38)
[2024-03-13] MEDS: HEPARIN SOD,PORK IN 0.45% NACL 25,000 UNIT in 0.45% NACL 1 250ML.BAG IV SCH (15:47)
[2024-03-13] MEDS: HEPARIN SODIUM 1,000 UN/ML (10ML VL) IV ONE (15:52)
[2024-03-13] MEDS ORDERED: LORazepam 0.5 MG TAB PO PRN (17:14)
[2024-03-13] MEDS ORDERED: LORazepam 1 MG TAB PO PRN ×3 (17:14)
--- NOTE | 2024-03-13 17:14 | P.HPIM ---
History of Present Illness H&P Date: 03/13/24 History of Presenting Illness: Patient is a very pleasant 63-year-old male with a past medical history of hyperlipidemia, ulcerative colitis, gout, nicotine dependence, and moderate alcohol use 3-4 times weekly drinking approximately 4-5 beers on each occasion. He presented to the emergency department with a chief complaint of chest pain. Patient reports he has been experiencing intermittent chest pain/discomfort over the past 3 weeks. He describes this pain as a pressure-like sensation to his midsternal chest accompanied by tightness between his shoulder blades and mild nausea. He reports this pain has came at rest and with exertion and denies anything making better or worse. Patient reports initially this pain would come and go and only last for a few minutes each time, however last night he reports the pain began to last for a longer period of time and was persistent for approximately 20 minutes straight and again this morning so he came to the emergency department for evaluation. Patient denies having any fevers, chills, headache, lightheadedness, dizziness, palpitations, shortness of breath, cough or congestion, or experiencing any numbness/tingling/weakness/swelling in his extremities. Patient reports he just completed antibiotic course for her u lcerative colitis and denies having any GI/ complaints including melena or hematochezia. Upon arrival to the emergency department, patient underwent evaluation. Vital signs upon arrival show blood pressure 145/86, heart rate 98, respiratory rate 16, temp 98.7 F, and SpO2 of 94% on room air. EKG was completed showing normal sinus rhythm at 91 bpm. Chest x-ray completed negative for acute cardiopulmonary process. Labs were completed and reviewed. CBC unremarkable with BC count of 6.0, hemoglobin 14.9, and platelet count of 270,000. BMP unremarkable. Blood glucose 144. Coagulation profile normal findings with the exception of elevated D-dimer of 1.32. Troponin also elevated at 0.057. CTA completed negative for pulmonary emboli showing three-vessel coronary artery calcifications and COPD with mild emphysema. Patient was started on low intensity heparin infusion for treatment of NSTEMI. Patient admitted under our services with consultation to cardiology. Review of systems: Pertinent positives and negatives as discussed in HPI, a complete review of systems was performed and all other systems are negative. Physical exam: Vital signs reviewed and stable. General: Nontoxic, no distress and appears stated age. Derm: Skin warm and dry, normal coloration for ethnicity. Head: Atraumatic, normocephalic and symmetric. Eyes: EOM's intact, no lid lag, and anicteric sclera Mouth: no lip lesions, mucus membranes moist Cardiovascular: regular rate and rhythm with normal S1S2, no murmur, positive posterior tibial pulses bilaterally, and cap refill < 2 seconds. Lungs: Respirations even, regular, and unlabored on room air. Lungs CTA bilaterally, no rhonchi, no rales, no wheezing, and no accessory muscle usage. Abdominal: soft, nontender to palpation, no guarding, no appreciable organomegaly Ext: ROM intact. No gross muscle atrophy, no edema, no contractures Neuro: Speech clear, face symmetrical and CN II-XII grossly intact with no noted focal neuro deficits Psych: Alert and oriented to person, place, time, and situation. Appropriate and pleasant affect. Assessment and Plan of Care: NSTEMI Chest pain with elevated troponin Hyperlipidemia Nicotine dependence -Cardiology consulted, appreciate recommendations -Continue low intensity heparin infusion with close monitoring of PTT for goal therapeutic range of 44 to 79 seconds -Telemetry monitoring -Trend troponins -Cardiac diet, NPO at midnight -Aspirin 81 mg daily, atorvastatin 80 mg daily, and metoprolol 12.5 mg twice daily -Lipid profile and hemoglobin A1c with a.m. labs. -Echocardiogram -Recommend cessation of nicotine use/cigars. Order placed for nicotine patch 21 mg daily. Moderate alcohol use/abuse, monitor for signs of withdrawal -Order placed for monitoring of CIWA scores and patient to be medicated with Ativan 0.5 mg every 4 hours as needed for CIWA score of 4-5, Ativan 1 mg every 4 hours for CIWA score of 6-7, Ativan 2 mg every 3 hours CIWA score of 8-9, and Ativan 2 mg every 2 hours forr CIWA score of 10 or greater. -Thiamine 100 mg daily, and Multivitamin daily, and Folate 1 mg daily -Seizure and fall precautions in place. -Continued close monitoring of electrolytes and replace as needed. -Telemetry monitoring. History of ulcerative colitis Patient states he is no longer taking any medications and has outpatient appointment with Dr. Jovel next week for follow-up. Data and imaging reviewed: As stated above in HPI The patient is admitted with an anticipated greater than 2 midnight stay for evaluation of NSTEMI CODE STATUS: Full code DVT prophylaxis: Heparin Anticipated discharge date: Pending clinical course Anticipated discharge place: Home Patient was seen independently by Nurse Practitioner. This document was prepared using [employer] dictation software. Please allow for errors in migration specialist while rare they do occur. Tyron Cali NP rendered care for this patient independently, reviewed the findings and plan as documented in the note above. I did not physically speak with or examine the patient on this date. Past Medical History Additional Past Medical History / Comment(s): COLITIS, gout History of Any Multi-Drug Resistant Organisms: None Reported Past Surgical History: No Surgical Hx Reported Past Psychological History: No Psychological Hx Reported Past Alcohol Use History: Daily Past Drug Use History: Marijuana Medications and Allergies Home Medications Medication Instructions Recorded Confirmed Type No Known Home Medications 03/13/24 03/13/24 History Allergies Allergy/AdvReac Type Severity Reaction Status Date / Time codeine Allergy Unknown Verified 03/13/24 15:41 Physical Exam Vitals: Vital Signs Temp Pulse Resp BP Pulse Ox 03/13/24 12:58 98.7 F 98 16 145/86 94 L Intake and Output 03/13/24 03/13/24 03/13/24 06:59 14:59 22:59 Other: Weight 88.451 kg Results CBC & Chem 7: 03/14/24 07:54 03/14/24 07:54 Labs: Abnormal Lab Results - Last 24 Hours (Table) 03/13/24 03/13/24 03/13/24 Range/Units 13:33 13:33 13:33 D-Dimer 1.32 H (<0.60) mg/L FEU Glucose 144 H (74-99) mg/dL Troponin I 0.057 H* (0.000-0.034) ng/mL
[2024-03-13] MEDS: ATORVASTATIN 80 MG TAB PO ONE (18:08)
[2024-03-13] MEDS: NITROGLYCERIN OINT 1 INCH/GM PACKET TOPICAL SCH (18:08)
[2024-03-13] MEDS: NICOTINE 21MG/24HR PATCH TRANSDERM SCH (20:05)
[2024-03-13] MEDS: METOPROLOL TARTRATE 12.5 MG TAB PO SCH (20:05)
[2024-03-14] MEDS: PANTOPRAZOLE 40 MG TABLET PO SCH (06:10)
[2024-03-14 08:12] LABS: HCT 45.1 % (39.0-53.0); HGB 15.1 gm/dL (13.0-17.5); MCH 32.2 pg (25.0-35.0); MCHC 33.5 g/dL (31.0-37.0); MCV 96.3 fL (80.0-100.0); Mean Platelet Volume 7.2; Platelet Count 260 k/uL (150-450); RBC 4.69 m/uL (4.30-5.90); RDW 12.5 % (11.5-15.5)
[2024-03-14] MEDS ORDERED: ALPRAZolam 0.25 MG TAB PO PRN (08:29)
[2024-03-14] MEDS ORDERED: NITROGLYCERIN SL TABS 0.4 MG TAB SUBLINGUAL PRN (08:29)
[2024-03-14] MEDS ORDERED: ALPRAZolam 0.5 MG TAB PO PRN (08:29)
[2024-03-14] MEDS: ASPIRIN 81 MG PO SCH (08:33)
[2024-03-14] MEDS: ATORVASTATIN 80 MG TAB PO SCH (08:34)
[2024-03-14] MEDS: ATORVASTATIN 80 MG TAB PO STA (08:47)
[2024-03-14] MEDS: FOLIC ACID 1 MG TAB PO SCH (08:47)
[2024-03-14] MEDS: ASPIRIN 325 MG TAB PO STA (08:47)
[2024-03-14] MEDS: THIAMINE 100 MG TAB PO SCH (08:47)
[2024-03-14] MEDS: MULTIVITAMINS, THERA 1 EACH TAB PO SCH (08:47)
[2024-03-14] MEDS: SODIUM CHLORIDE 0.9% 1,000 ML in EMPTY BAG 1 BAG IV ONE (08:48)
[2024-03-14 08:49] LABS: African American GFR (CKD) >90 (>60 ml/min/1.73 sqM); Anion Gap 3 mmol/L; Blood Urea Nitrogen 12 mg/dL (9-20); Calcium 9.6 mg/dL (8.4-10.2); Carbon Dioxide 29 mmol/L (22-30); Chloride 106 mmol/L (98-107); Glucose 106 mg/dL (74-99); Magnesium 2.1 mg/dL (1.6-2.3); Non-African American GFR(CKD) 89 (>60 ml/min/1.73 sqM); Potassium 4.3 mmol/L (3.5-5.1); Sodium 138 mmol/L (137-145)
[2024-03-14] MEDS ORDERED: ASPIRIN 325 MG TAB PO SCH (09:00)
[2024-03-14] MEDS ORDERED: LIDOCAINE 1% INJ 10MG/ML (20 ML MDV) ONE (10:05)
[2024-03-14] MEDS ORDERED: VERAPAMIL 2.5 MG/ML 2 ML AMP ONE (10:05)
[2024-03-14] MEDS ORDERED: fentaNYL (PF) 50 MCG/ML 2 ML AMP ONE (10:20)
[2024-03-14] MEDS ORDERED: HEPARIN SODIUM 1,000 UN/ML (10ML VL) ONE (10:20)
[2024-03-14] MEDS: IV FLUID CONTINUATION 900 ML IV ONE (10:35)
[2024-03-14] MEDS: fentaNYL (PF) 50 MCG/ML 2 ML AMP IVP ONE ×3 (10:35)
[2024-03-14] MEDS: MIDAZOLAM 2 MG/2 ML VIAL IVP ONE ×2 (10:35)
[2024-03-14] MEDS: LIDOCAINE 1% INJ 10MG/ML (20 ML MDV) SQ ONE (10:37)
[2024-03-14] MEDS: VERAPAMIL SYRINGE (5 MG/10 ML) INTRAARTER ONE (10:38)
[2024-03-14] MEDS: HEPARIN SODIUM 1,000 UN/ML (10ML VL) IV ONE (10:41)
--- NOTE | 2024-03-14 11:00 | P.CRDCN ---
History of Present Illness Consult date: 03/14/24 Reason for Consult (text): ACS History of present illness: This is a 63-year-old male with no previous cardiac history. Patient has a past medical history of colitis, tobacco use, regular alcohol use. We have been asked to evaluate the patient for chest pain. Patient states he has had chest pain going on for about 3 weeks off and on but on Thursday afternoon it lasted the longest time. He works in [employer] and is a [employer]. He is normally quite active and does not experience chest pain with activity. No history of coronary artery disease. He is an active smoker. He states he drinks alcohol socially. He also uses marijuana occasionally. Patient has been started on a heparin drip and Nitropaste. Discussed options of cardiac catheterization and patient is agreeable to move forward with this today. He is NPO. Blood p ressure 159/90, heart rate 68, pulse ox 95% on room air. EKG: Nonspecific ST-T wave changes Chest x-ray: No acute process CT angio of the chest reveals COPD with mild emphysema. Three-vessel coronary artery calcifications. No evidence of pulmonary embolism. Laboratory studies: CBC unremarkable. D-dimer 1.32. Electrolytes renal function are normal. Troponins 0.057, 0.059, 0.049. Home cardiac medications: None Review Of Systems: At the time of my exam: CONSTITUTIONAL: Denies fever or chills. HEENT: Denies blurred vision, vision changes, or eye pain. Denies hemoptysis CARDIOVASCULAR: Denies chest pain. Denies orthopnea. Denies PND. Denies palpitations RESPIRATORY: Denies shortness of breath. GASTROINTESTINAL: Denies abdominal pain. Denies nausea or vomiting. HEMATOLOGIC: Denies bleeding disorders. GENITOURINARY: Denies any blood in urine. SKIN: Denies puritis. Denies rash. Physical examination: Gen: This is a 63-year-old male in no acute distress VS: reviewed HEENT: Head is atraumatic, normocephalic. Pupils equal, round. Sclerae is anicteric. NECK: Supple. No JVD. LUNGS: Clear to auscultation. No wheezes or rhonchi. No intercostal retractions. HEART: Regular rate and rhythm. No murmur. ABDOMEN: Soft No tenderness. EXTREMITIES: No pedal edema. Dorsalis pedis palpable bilaterally. No calf tenderness. NEUROLOGICAL: Patient is awake, alert and oriented x3. Assessment: Non-ST elevated myocardial infarction Elevated D-dimer with PE ruled out COPD Tobacco use and dependence Alcohol use, patient was started on CIWA recall Occasional marijuana use Plan: Resume patient's home cardiac medications Schedule patient for left heart catheterization with Dr. Shanita Jovel today Obtain 2-D echocardiogram and Doppler study to assess cardiac structure and function Discontinue heparin drip Discontinue Nitropaste Further recommendations to follow based upon clinical course Thank you kindly for this consultation. Nurse practitioner note has been reviewed, I agree with documented findings and plan of care. Patient was seen and examined. Past Medical History Additional Past Medical History / Comment(s): COLITIS, gout History of Any Multi-Drug Resistant Organisms: None Reported Past Surgical History: No Surgical Hx Reported Past Psychological History: No Psychological Hx Reported Past Alcohol Use History: Daily Past Drug Use History: Marijuana Medications and Allergies Home Medications Medication Instructions Recorded Confirmed Type No Known Home Medications 03/13/24 03/13/24 History Allergies Allergy/AdvReac Type Severity Reaction Status Date / Time codeine Allergy Unknown Verified 03/13/24 15:41 Physical Exam Vitals: Vital Signs Temp Pulse Pulse Resp BP BP Pulse Ox 03/14/24 04:00 77 18 125/81 95 03/14/24 01:07 18 03/13/24 23:15 63 18 105/66 97 03/13/24 20:00 98.3 F 71 18 120/75 96 03/13/24 17:15 74 18 03/13/24 17:14 74 18 145/80 98 03/13/24 17:04 74 18 145/80 98 03/13/24 16:33 97 20 140/76 96 03/13/24 12:58 98.7 F 98 16 145/86 94 L Intake and Output 03/13/24 03/14/24 03/14/24 22:59 06:59 14:59 Intake Total 254.993 57.749 Balance 254.993 57.749 Intake: Intake, IV Titration 14.993 57.749 Amount Heparin Sod,Pork in 0.45% 14.993 57.749 NaCl 25,000 unit In 0.45 % NaCl 1 250ml.bag @ 11.3 UNITS/KG/HR 9.995 mls/hr IV .Q24H [facility] Rx#: [id number] Oral 240 Other: Voiding Method Toilet Toilet Weight 88.451 kg 88.3 kg Results 03/14/24 07:54 03/14/24 07:54 Cardiac Enzymes 03/13/24 03/13/24 03/13/24 Range/Units 13:33 13:33 16:33 AST 25 (17-59) U/L Troponin I 0.057 H* 0.059 H* (0.000-0.034) ng/mL 03/13/24 Range/Units 20:29 AST (17-59) U/L Troponin I 0.049 H* (0.000-0.034) ng/mL Coagulation 03/13/24 03/13/24 03/14/24 Range/Units 13:33 16:33 00:25 PT 12.0 (10.0-12.5) sec APTT 28.6 98.3 H 33.1 H (22.0-30.0) sec 03/14/24 Range/Units 07:54 PT (10.0-12.5) sec APTT 47.6 H (22.0-30.0) sec CBC 03/13/24 03/14/24 Range/Units 13:33 07:54 WBC 6.0 6.0 (3.8-10.6) k/uL RBC 4.43 4.69 (4.30-5.90) m/uL Hgb 14.9 15.1 (13.0-17.5) gm/dL Hct 42.1 45.1 (39.0-53.0) % Plt Count 270 260 (150-450) k/uL Comprehensive Metabolic Panel 03/13/24 Range/Units 13:33 Sodium 138 (137-145) mmol/L Potassium 3.8 (3.5-5.1) mmol/L Chloride 102 (98-107) mmol/L Carbon Dioxide 27 (22-30) mmol/L BUN 13 (9-20) mg/dL Creatinine 0.87 (0.66-1.25) mg/dL Glucose 144 H (74-99) mg/dL Calcium 9.3 (8.4-10.2) mg/dL AST 25 (17-59) U/L ALT 13 (4-49) U/L Alkaline Phosphatase 56 (38-126) U/L Total Protein 6.7 (6.3-8.2) g/dL Albumin 4.1 (3.5-5.0) g/dL Current Medications Generic Name Dose Route Start Last Admin Trade Name Freq PRN Reason Stop Dose Admin Acetaminophen 650 mg 03/13/24 15:38 Acetaminophen Tab 325 Mg Tab PO Q6HR PRN Mild Pain or Fever > 100.5 Hydrocodone Bitart/Acetaminophen 1 each 03/13/24 15:38 Hydrocodone/Apap 5-325mg 1 Each Tab PO Q4HR PRN Moderate Pain (Scale 4 to 6) Aspirin 81 mg 03/14/24 09:00 Aspirin 81 Mg PO DAILY [facility] Atorvastatin Calcium 80 mg 03/14/24 09:00 Atorvastatin 80 Mg Tab PO DAILY [facility] Folic Acid 1 mg 03/14/24 09:00 Folic Acid 1 Mg Tab PO DAILY [facility] Heparin Sodium/Sodium Chloride 250 mls @ 9.995 mls/hr 03/13/24 15:30 03/14/24 02:02 25,000 unit/ Sodium Chloride IV 11.3 units/kg/hr .Q24H [facility] 9.995 mls/hr Titration Protocol 11.3 UNITS/KG/HR Lorazepam 0.5 mg 03/13/24 17:14 Lorazepam 0.5 Mg Tab PO Q4HR PRN Ciwa 4 To 5 Lorazepam 1 mg 03/13/24 17:14 Lorazepam 1 Mg Tab PO Q4HR PRN Ciwa 6 To 7 Lorazepam 2 mg 03/13/24 17:14 Lorazepam 1 Mg Tab PO Q2HR PRN Ciwa 10 or greater Lorazepam 2 mg 03/13/24 17:14 Lorazepam 1 Mg Tab PO Q3HR PRN Ciwa 8 To 9 Metoprolol Tartrate 12.5 mg 03/13/24 21:00 03/13/24 20:05 Metoprolol Tartrate 12.5 Mg Tab PO 12.5 mg BID [facility] Administration Multivitamins 1 each 03/14/24 09:00 Multivitamins, Thera 1 Each Tab PO DAILY [facility] Naloxone HCl 0.2 mg 03/13/24 15:38 Naloxone 0.4 Mg/Ml 1 Ml Vial IVP Q2M PRN Opioid Reversal Nicotine 1 patch 03/13/24 21:00 03/13/24 20:05 Nicotine 21mg/24hr Patch TRANSDERM 1 patch DAILY [facility] Administration Nitroglycerin 0.4 mg 03/13/24 15:24 Nitroglycerin Sl Tabs 0.4 Mg Tab SUBLINGUAL Q5M PRN Chest Pain Nitroglycerin 1 inch 03/13/24 18:00 03/14/24 06:10 Nitroglycerin Oint 1 Inch/Gm Packet TOPICAL 1 inch Q6HR [facility] Administration Pantoprazole Sodium 40 mg 03/14/24 07:30 03/14/24 06:10 Pantoprazole 40 Mg Tablet PO 40 mg [id number] [facility] Administration Thiamine HCl 100 mg 03/14/24 09:00 Thiamine 100 Mg Tab PO DAILY [facility] Intake and Output 03/13/24 03/14/24 03/14/24 22:59 06:59 14:59 Intake Total 254.993 57.749 Balance 254.993 57.749 Intake: Intake, IV Titration 14.993 57.749 Amount Heparin Sod,Pork in 0.45% 14.993 57.749 NaCl 25,000 unit In 0.45 % NaCl 1 250ml.bag @ 11.3 UNITS/KG/HR 9.995 mls/hr IV .Q24H [facility] Rx#: [id number] Oral 240 Other: Voiding Method Toilet Toilet Weight 88.451 kg 88.3 kg 03/14/24 07:54 03/13/24 13:33
[2024-03-14] MEDS ORDERED: TICAGRELOR 90 MG TAB ONE (11:01)
[2024-03-14] MEDS: TICAGRELOR 90 MG TAB PO ONE (11:02)
[2024-03-14] MEDS: NITROGLYCERIN 1000MCG/10ML SYRINGE INTRACORON ONE (11:24)
[2024-03-14] MEDS: IOPAMIDOL-370 200ML BTL INJ ONE (11:31)
[2024-03-14] MEDS ORDERED: ZOLPIDEM 5 MG TAB PO PRN (11:37)
[2024-03-14] MEDS ORDERED: ATROPINE SULFATE 0.1 MG/ML 10ML SYRINGE IV PRN (11:37)
[2024-03-14] MEDS ORDERED: MAG HYDROX/AL HYDROX/SIMETH 30 ML CUP PO PRN (11:37)
[2024-03-14] MEDS ORDERED: RX INFO: IV CONTRAST WAS GIVEN 1 EACH MISC MISCELLANE PRN (11:37)
[2024-03-14] MEDS: ATORVASTATIN 80 MG TAB ONE (11:59)
[2024-03-14] MEDS: FAMOTIDINE 20 MG TAB ONE (11:59)
[2024-03-14] MEDS: MORPHINE SULFATE 4 MG/ML SYRINGE ONE (11:59)
[2024-03-14] MEDS: METOPROLOL TARTRATE 12.5 MG TAB ONE (11:59)
[2024-03-14] MEDS: PANTOPRAZOLE 40 MG TABLET PO ONE (11:59)
[2024-03-14] MEDS: NITROGLYCERIN OINT 1 INCH/GM PACKET TOPICAL ONE ×3 (11:59)
--- NOTE | 2024-03-14 12:57 | CA ---
Transthoracic Echo Report Name: Rosendo Galvan Age: 63 Gender: M : 1960 Exam Date: 03/14/2024 09:13 Exam Location: [facility] Ht (in): 74 Wt (lb): 195 Ordering Physician: Sadiq Chaney DO Attending/Referring Phys: Animal Caretaker Viviane Mak RDCS Procedure CPT: Indications: ACS Cardiac Hx: Technical Quality: Fair Contrast 1: Total Dose (mL): Contrast 2: Total Dose (mL): MEASUREMENTS (Male / Female) Normal Values 2D ECHO LV Diastolic Diameter PLAX 4.2 cm 4.2 - 5.9 / 3.9 - 5.3 cm LV Systolic Diameter PLAX 3.0 cm IVS Diastolic Thickness 1.2 cm 0.6 - 1.0 / 0.6 - 0.9 cm LVPW Diastolic Thickness 1.1 cm 0.6 - 1.0 / 0.6 - 0.9 cm LV Relative Wall Thickness 0.5 LA Volume 72.8 cm??? 18 - 58 / 22 - 52 cm??? LA Volume Index 33.8 cm???/m??? 16 - 28 cm???/m??? M-MODE Aortic Root Diameter MM 3.2 cm LA Systolic Diameter MM 3.7 cm LA Ao Ratio MM 1.1 DOPPLER AV Peak Velocity 133.9 cm/s AV Peak Gradient 7.2 mmHg AV Mean Velocity 99.7 cm/s AV Mean Gradient 4.3 mmHg AV Velocity Time Integral 31.1 cm AI Peak Velocity 391.9 cm/s AI Peak Gradient 61.4 mmHg AI Pressure Half Time 713.8 ms LVOT Peak Velocity 124.7 cm/s LVOT Peak Gradient 6.2 mmHg LVOT Velocity Time Integral 26.6 cm MV Area PHT 3.0 cm??? Mitral E Point Velocity 64.8 cm/s Mitral A Point Velocity 69.1 cm/s Mitral E to A Ratio 0.9 MV Deceleration Time 249.9 ms MV E' Velocity 9.0 cm/s Mitral E to MV E' Ratio 7.2 TR Peak Velocity 244.6 cm/s TR Peak Gradient 23.9 mmHg Right Ventricular Systolic Press 28.5 mmHg FINDINGS Left Ventricle Mildly increased left ventricular wall thickness. Left ventricular cavity size normal. Normal left ventricular systolic function with no obvious regional wall motion abnormalities. Left ventricular ejection fraction is estimated at 55-60 %. Grade 1 diastolic dysfunction. Right Ventricle Normal right ventricular size and function. Right ventricular systolic pressure within normal limits. Right Atrium Normal right atrial size. Left Atrium Mildly increased left atrial volume. Mildly increased left atrial area. Interatrial septal aneurysm. Mitral Valve Structurally normal mitral valve. No mitral stenosis. Mild mitral regurgitation. Mild mitral annular calcification. Aortic Valve No aortic valve stenosis or regurgitation. Tricuspid Valve Structurally normal tricuspid valve. Mild tricuspid regurgitation. Pulmonic Valve Structurally normal pulmonic valve. No pulmonic stenosis. Trace pulmonic regurgitation. Pericardium No pericardial effusion. Aorta Normal size aortic root and proximal ascending aorta. CONCLUSIONS Mildly increased left ventricular wall thickness Left ventricular ejection fraction 55-60% RVSP 29 Intra-atrial septal aneurysm Mildly dilated left atrium Mild mitral regurgitation Mild tricuspid regurgitation Previewed by: Dr. Ed Perez DO (Electronically Signed) Final Date: 14 March 2024 12:56
--- NOTE | 2024-03-14 13:10 | P.PCN ---
Date of Procedure: 03/14/24 Operative Findings: PERCUTANEOUS CORONARY INTERVENTION Performing physician Micheal Patricia M.D. Procedure Performed: 1. Successful stenting of the mid LAD using 3.5 x 18 mm Xience drug-eluting stent with an excellent angiographic results. 2. Adjunctive use of IVUS Indication: Acute non-ST elevation myocardial infarction in the 63-year-old gentleman who underwent a heart catheterization that revealed severe disease involving the mid LAD Approach: Right radial artery Complications: None Level of Sedation: Moderate with a sedation length of 33 minutes Procedure Discussion: Please refer to diagnostic heart catheterization was performed by Dr. Jovel earlier today. Anticoagulation was initiated using heparin with continuous ACT monitoring. Subsequently attempting engaging the left main using an EBU 3.75 was unsuccessful but was successful using JL 3.5 guiding catheter. After that I did wire the LAD using a whisper wire. I did intravascular ultrasound which showed a diameter around 3.5 mm with a calcified vessel. Predilatation was performed using 3 mm noncompliant balloon before a deployed 3.5 x 18 mm stent which subsequently was postdilated using 3.75 mm noncompliant balloon was final angiogram showing excellent angiographic results and the procedure was completed with no complication Postprocedure Management: 1. Dual antiplatelet therapy using aspirin and Brilinta 2. Aggressive cholesterol control 3. Follow-up with the patient
--- NOTE | 2024-03-14 14:46 | P.PN ---
Subjective Progress Note Date: 03/14/24 Hospital course: Patient is a very pleasant 63-year-old male with a past medical history of hyperlipidemia, ulcerative colitis, gout, nicotine dependence, and moderate alcohol use 3-4 times weekly drinking approximately 4-5 beers on each occasion. He presented to the emergency department with a chief complaint of chest pain. Patient reports he has been experiencing intermittent chest pain/discomfort over the past 3 weeks. He describes this pain as a pressure-like sensation to his midsternal chest accompanied by tightness between his shoulder blades and mild nausea. He reports this pain has came at rest and with exertion and denies anything making better or worse. Patient reports initially this pain would come and go and only last for a few minutes each time, however last night he reports the pain began to last for a longer period of time and was persistent for approximately 20 minutes straight and again this morning so he came to the emergency department for evaluation. Patient denies having any fevers, chills, headache, lightheadedness, dizziness, palpitations, shortness of breath, cough or congestion, or experiencing any numbness/tingling/weakness/swelling in his extremities. Patient reports he just completed antibiotic course for her ulcerative colitis and denies having any GI/ complaints including melena or hematochezia. Upon arrival to the emergency department, patient underwent evaluation. Vital signs upon arrival show blood pressure 145/86, heart rate 98, respiratory rate 16, temp 98.7 F, and SpO2 of 94% on room air. EKG was completed showing normal sinus rhythm at 91 bpm. Chest x-ray completed negative for acute cardiopulmonary process. Labs were completed and reviewed. CBC unremarkable with BC count of 6.0, hemoglobin 14.9, and platelet count of 270,000. BMP unremarkable. Blood glucose 144. Coagulation profile normal findings with the exception of elevated D-dimer of 1.32. Troponin also elevated at 0.057. CTA completed negative for pulmonary emboli showing three-vessel coronary artery calcifications and COPD with mild emphysema. Patient was started on low intensity heparin infusion for treatment of NSTEMI. Patient ad mitted under our services with consultation to cardiology. Troponins trended overnight resulting at 0.057, 0.059, and 0.049. Physical exam: Patient evaluated by cardiology and to be taken down for cardiac cath later today. Currently free from chest pain or complaints at this time. Vital signs reviewed and stable. General: Nontoxic, no distress and appears stated age. Derm: Skin warm and dry, normal coloration for ethnicity. Head: Atraumatic, normocephalic and symmetric. Eyes: EOM's intact, no lid lag, and anicteric sclera Mouth: no lip lesions, mucus membranes moist Cardiovascular: regular rate and rhythm with normal S1S2, no murmur, positive posterior tibial pulses bilaterally, and cap refill < 2 seconds. Lungs: Respirations even, regular, and unlabored on room air. Lungs CTA bilaterally, no rhonchi, no rales, no wheezing, and no accessory muscle usage. Abdominal: soft, nontender to palpation, no guarding, no appreciable organomegaly Ext: ROM intact. No gross muscle atrophy, no edema, no contractures Neuro: Speech clear, face symmetrical and CN II-XII grossly intact with no noted focal neuro deficits Psych: Alert and oriented to person, place, time, and situation. Appropriate and pleasant affect. Assessment and Plan of Care: NSTEMI Chest pain with elevated troponin Hyperlipidemia Nicotine dependence -Cardiology consulted, planning to take patient down for cardiac catheterization. -Continue low intensity heparin infusion with close monitoring of PTT for goal t herapeutic range of 44 to 79 seconds. INR currently therapeutic at 47.6. -Telemetry monitoring -Troponins trended overnight resulting at 0.057, 0.059, and 0.049. -Aspirin 81 mg daily, atorvastatin 80 mg daily, and metoprolol 12.5 mg twice daily -Hemoglobin A1c was elevated at 6.1%. Awaiting results of lipid profile. -Echocardiogram -Recommend cessation of nicotine use/cigars. Order placed for nicotine patch 21 mg daily. Moderate alcohol use/abuse, monitor for signs of withdrawal -Order placed for monitoring of CIWA scores and patient to be medicated with Ativan 0.5 mg every 4 hours as needed for CIWA score of 4-5, Ativan 1 mg every 4 hours for CIWA score of 6-7, Ativan 2 mg every 3 hours CIWA score of 8-9, and Ativan 2 mg every 2 hours forr CIWA score of 10 or greater. -Thiamine 100 mg daily, and Multivitamin daily, and Folate 1 mg daily -Seizure and fall precautions in place. -Continued close monitoring of electrolytes and replace as needed. -Telemetry monitoring. Elevated hemoglobin A1c of 6.1% Will discuss with patient on diet and lifestyle modifications and may consider discharge home on metformin. History of ulcerative colitis Patient states he is no longer taking any medications and has outpatient appointment with Dr. Jovel next week for follow-up. Data and imaging reviewed: Troponins trended overnight resulting at 0.057, 0.059, and 0.049. Hemoglobin A1c 6.1%.. PTT therapeutic at 47.6. CBC unremarkable. BMP normal findings. Blood glucose 106. Magnesium 2.1. Vital signs reviewed. Blood pressure 159/90, heart rate 68, respiratory rate 18, and SpO2 of 95% on room air. CODE STATUS: Full code DVT prophylaxis: Heparin Anticipated discharge date: Pending clinical course Anticipated discharge place: Home Patient was seen independently by Nurse Practitioner. This document was prepared using [employer] dictation software. Please allow for errors in mapping pilot while rare they do occur. Tyron Cali NP rendered care for this patient independently, reviewed the findings and plan as documented in the note above. I did not physically speak with or examine the patient on this date. Objective - Vital Signs Vital signs: Vital Signs Temp 98.3 F 03/13/24 20:00 Pulse 77 03/14/24 04:00 Resp 18 03/14/24 04:00 BP 125/81 03/14/24 04:00 Pulse Ox 95 03/14/24 04:00 FiO2 Intake & Output 03/13/24 03/14/24 03/14/24 18:59 06:59 18:59 Intake Total 254.993 57.749 Balance 254.993 57.749 Weight 88.451 kg 88.3 kg Intake: Intake, IV Titration 14.993 57.749 Amount Heparin Sod,Pork in 0.45% 14.993 57.749 NaCl 25,000 unit In 0.45 % NaCl 1 250ml.bag @ 11.3 UNITS/KG/HR 9.995 mls/hr IV .Q24H [facility] Rx#: [id number] Oral 240 Other: Voiding Method Toilet - Labs CBC & Chem 7: 03/14/24 07:54 03/14/24 07:54 Labs: Abnormal Lab Results - Last 24 Hours (Table) 03/13/24 03/13/24 03/13/24 Range/Units 13:33 13:33 13:33 APTT (22.0-30.0) sec D-Dimer 1.32 H (<0.60) mg/L FEU Glucose 144 H (74-99) mg/dL Hemoglobin A1c (<=6.0) % Troponin I 0.057 H* (0.000-0.034) ng/mL 03/13/24 03/13/24 03/13/24 Range/Units 14:36 16:33 16:33 APTT 98.3 H (22.0-30.0) sec D-Dimer (<0.60) mg/L FEU Glucose (74-99) mg/dL Hemoglobin A1c 6.1 H (<=6.0) % Troponin I 0.059 H* (0.000-0.034) ng/mL 03/13/24 03/14/24 03/14/24 Range/Units 20:29 00:25 07:54 APTT 33.1 H 47.6 H (22.0-30.0) sec D-Dimer (<0.60) mg/L FEU Glucose (74-99) mg/dL Hemoglobin A1c (<=6.0) % Troponin I 0.049 H* (0.000-0.034) ng/mL
[2024-03-14 16:31] LABS: Chol/HDL Ratio 5.15 Ratio; LDL Cholesterol,Calculated 144.6 mg/dL (0.0-131.0)
[2024-03-14] MEDS: SODIUM CHLORIDE 0.9% 1,000 ML in EMPTY BAG 1 BAG IV SCH (19:07)
[2024-03-14] MEDS: TICAGRELOR 90 MG TAB PO SCH (20:13)
[2024-03-15] MEDS ORDERED: HEPARIN SODIUM,PORCINE (1 ML) 2,500 UNIT in SODIUM CHLORIDE 0.9% 250 ML IRRIGATION PRN (07:00)
[2024-03-15] MEDS ORDERED: HEPARIN SODIUM,PORCINE 10,000 UNIT in SODIUM CHLORIDE 0.9% 1,000 ML IRRIGATION PRN (07:00)
[2024-03-15 08:20] LABS: HCT 43.9 % (39.0-53.0); HGB 14.6 gm/dL (13.0-17.5); MCH 32.3 pg (25.0-35.0); MCHC 33.3 g/dL (31.0-37.0); MCV 96.9 fL (80.0-100.0); Mean Platelet Volume 7.7; Platelet Count 239 k/uL (150-450); RBC 4.53 m/uL (4.30-5.90); RDW 12.5 % (11.5-15.5); WBC 7.3 k/uL (3.8-10.6)
[2024-03-15 08:22] LABS: Basophils % (A) 0 %; Eosinophils # (A) 0.3 k/uL (0-0.7); Eosinophils % (A) 4 %; HCT 45.2 % (39.0-53.0); HGB 15.1 gm/dL (13.0-17.5); Lymphocytes # (A) 2.2 k/uL (1.0-4.8); Lymphocytes % (A) 32 %; MCH 32.4 pg (25.0-35.0); MCHC 33.5 g/dL (31.0-37.0); MCV 96.8 fL (80.0-100.0); Mean Platelet Volume 7.8; Monocytes # (A) 0.3 k/uL (0-1.0); Monocytes % (A) 5 %; Neutrophils # (A) 3.9 k/uL (1.3-7.7); Neutrophils % (A) 57 %; Platelet Count 254 k/uL (150-450); RBC 4.67 m/uL (4.30-5.90); RDW 12.6 % (11.5-15.5); WBC 6.8 k/uL (3.8-10.6)
[2024-03-15 08:30] LABS: African American GFR (CKD) >90 (>60 ml/min/1.73 sqM); Anion Gap 6 mmol/L; Blood Urea Nitrogen 11 mg/dL (9-20); Calcium 9.3 mg/dL (8.4-10.2); Carbon Dioxide 26 mmol/L (22-30); Chloride 107 mmol/L (98-107); Glucose 124 mg/dL (74-99); Non-African American GFR(CKD) >90 (>60 ml/min/1.73 sqM); Potassium 4.3 mmol/L (3.5-5.1); Sodium 139 mmol/L (137-145)
[2024-03-15 08:31] LABS: African American GFR (CKD) >90 (>60 ml/min/1.73 sqM); Non-African American GFR(CKD) 90 (>60 ml/min/1.73 sqM)
[2024-03-15 09:24] VITALS: RESP 17
[2024-03-15 10:41] VITALS: BMI 25.2
--- NOTE | 2024-03-15 12:24 | P.PN ---
Subjective Progress Note Date: 03/15/24 Hospital course: Patient is a very pleasant 63-year-old male with a past medical history of hyperlipidemia, ulcerative colitis, gout, nicotine dependence, and moderate alcohol use 3-4 times weekly drinking approximately 4-5 beers on each occasion. He presented to the emergency department with a chief complaint of chest pain. Upon arrival to the emergency department, patient underwent evaluation. Vital signs upon arrival show blood pressure 145/86, heart rate 98, respiratory rate 16, temp 98.7 F, and SpO2 of 94% on room air. EKG was completed showing normal sinus rhythm at 91 bpm. Chest x-ray completed negative for acute cardiopulmonary process. Labs were completed and reviewed. CBC unremarkable with BC count of 6.0, hemoglobin 14.9, and platelet count of 270,000. BMP unremarkable. Blood glucose 144. Coagulation profile normal findings with the exception of elevated D-dimer of 1.32. Troponin also elevated at 0.057. CTA completed negative for pulmonary emboli showing three-vessel coronary artery calcifications and COPD with mild emphysema. Patient was started on low intensity heparin infusion for treatment of NSTEMI. Patient admitted under our services with consultation to cardiology. Troponins trended overnight resulting at 0.057, 0.059, and 0.049. Cardiology took patient for cardiac cath on 03/14/2024 resulting in successful stenting of mid LAD. Echocardiogram was completed showing preserved EF of 55 to 60% with mild mitral and tricuspid regurgitation. Physical exam: Patient seen and fully evaluated at bedside this morning he was resting comf ortably and denies having any complaints of chest pain or shortness of breath. Cardiac cath access site right wrist showing no signs of hematoma formation and no bleeding or drainage. Patient denies having any numbness/tingling in his right hand. Vital signs reviewed and stable. General: Nontoxic, no distress and appears stated age. Derm: Skin warm and dry, normal coloration for ethnicity. Head: Atraumatic, normocephalic and symmetric. Eyes: EOM's intact, no lid lag, and anicteric sclera Mouth: no lip lesions, mucus membranes moist Cardiovascular: regular rate and rhythm with normal S1S2, no murmur, positive posterior tibial pulses bilaterally, and cap refill < 2 seconds. Lungs: Respirations even, regular, and unlabored on room air. Lungs CTA bilaterally, no rhonchi, no rales, no wheezing, and no accessory muscle usage. Abdominal: soft, nontender to palpation, no guarding, no appreciable organomegaly Ext: ROM intact. No gross muscle atrophy, no edema, no contractures Neuro: Speech clear, face symmetrical and CN II-XII grossly intact with no noted focal neuro deficits Psych: Alert and oriented to person, place, time, and situation. Appropriate and pleasant affect. Assessment and Plan of Care: NSTEMI Chest pain with elevated troponin Hyperlipidemia Nicotine dependence -Cardiology following and took patient for cardiac cath on 03/14/2024 resulting in successful stenting of mid LAD. -Continue dual antiplatelet therapy with aspirin and Brilinta -Telemetry monitoring -Troponins trended overnight resulting at 0.057, 0.059, and 0.049. -Atorvastatin 80 mg daily and metoprolol 12.5 mg twice daily -Hemoglobin A1c was elevated at 6.1%. -Lipid profile showing elevated total cholesterol of 211 and LDL of 144.6. -Echocardiogram showing preserved EF of 55 to 60% with mild mitral and tricuspid regurgitation. -Recommend cessation of nicotine use/cigars. Continue nicotine patch 21 mg daily. Moderate alcohol use/abuse, monitor for signs of withdrawal -Order placed for monitoring of CIWA scores and patient to be medicated with Ativan 0.5 mg every 4 hours as needed for CIWA score of 4-5, Ativan 1 mg every 4 hours for CIWA score of 6-7, Ativan 2 mg every 3 hours CIWA score of 8-9, and Ativan 2 mg every 2 hours forr CIWA score of 10 or greater. -Thiamine 100 mg daily, and Multivitamin daily, and Folate 1 mg daily -Seizure and fall precautions in place. -Continued close monitoring of electrolytes and replace as needed. -Telemetry monitoring. Elevated hemoglobin A1c of 6.1% Will discuss with patient on diet and lifestyle modifications and may consider discharge home on metformin. History of ulcerative colitis Patient states he is no longer taking any medications and has outpatient appointment with Dr. Jovel next week for follow-up. Data and imaging reviewed: Troponins trended overnight resulting at 0.057, 0.059, and 0.049. Hemoglobin A1c 6.1%.. PTT therapeutic at 47.6. CBC unremarkable. BMP normal findings. Blood glucose 106. Magnesium 2.1. Vital signs reviewed. Blood pressure 159/90, heart rate 68, respiratory rate 18, and SpO2 of 95% on room air. CODE STATUS: Full code DVT prophylaxis: Heparin Anticipated discharge date: Pending clinical course Anticipated discharge place: Home Patient was seen independently by Nurse Practitioner. This document was prepared using [employer] dictation software. Please allow for errors in milking system installer while rare they do occur. I reviewed the documentation as provided by the SHABANA above, who is the original author of this note. I agree with the documented assessment and plan, with the following changes: none Objective - Vital Signs Vital signs: Vital Signs Temp 98.0 F 03/14/24 20:00 Pulse 53 L 03/15/24 04:00 Resp 18 03/15/24 04:00 BP 129/75 03/15/24 04:00 Pulse Ox 97 03/15/24 04:00 FiO2 Intake & Output 03/14/24 03/15/24 03/15/24 18:59 06:59 18:59 Intake Total 440 240 Balance 440 240 Weight 89.4 kg Intake: IV 200 Oral 240 240 Other: Voiding Method Toilet Toilet # Voids 3 - Labs CBC & Chem 7: 03/15/24 07:39 03/15/24 07:39 Labs: Abnormal Lab Results - Last 24 Hours (Table) 03/14/24 03/14/24 Range/Units 07:54 07:54 APTT 47.6 H (22.0-30.0) sec Glucose 106 H (74-99) mg/dL Cholesterol 211.00 H (0.00-200.00) mg/dL LDL Cholesterol, Calc 144.6 H (0.0-131.0) mg/dL
[2024-03-15 13:29] VITALS: BP 136/80; PULSE 56; TEMP 97.5
--- NOTE | 2024-03-15 16:06 | P.DS ---
Providers Date of admission: 03/13/24 17:25 Expected date of discharge: 03/15/24 Attending physician: Cheko Gerardo MD Consults: 03/13/24 15:24 Consult Physician Urgent Consulting Provider: Micheal Patricia Consult Reason/Comments: acs Do you want consulting provider notified?: Yes 03/14/24 11:37 Consult Physician Routine Consulting Provider: [facility] Consult Reason/Comments: Post Interventional patient Do you want consulting provider notified?: Already Contacted Primary care physician: Stated None Hospital Course: Discharge Diagnosis: NSTEMI Chest pain with elevated troponin Hyperlipidemia Nicotine dependence Moderate alcohol use/abuse, monitor for signs of withdrawal Elevated hemoglobin A1c of 6.1% History of ulcerative colitis Hospital Course: Patient is a very pleasant 63-year-old male with a past medical history of hyperlipidemia, ulcerative colitis, gout, nicotine dependence, and moderate alcohol use 3-4 times weekly drinking approximately 4-5 beers on each occasion. He presented to the emergency department with a chief complaint of chest pain. Upon arrival to the emergency department, patient underwent evaluation. Vital signs upon arrival show blood pressure 145/86, heart rate 98, respiratory rate 16, temp 98.7 F, and SpO2 of 94% on room air. EKG was completed showing normal sinus rhythm at 91 bpm. Chest x-ray completed negative for acute cardiopulmonary process. Labs were completed and reviewed. CBC unremarkable with BC count of 6 .0, hemoglobin 14.9, and platelet count of 270,000. BMP unremarkable. Blood glucose 144. Coagulation profile normal findings with the exception of elevated D-dimer of 1.32. Troponin also elevated at 0.057. CTA completed negative for pulmonary emboli showing three-vessel coronary artery calcifications and COPD with mild emphysema. Patient was started on low intensity heparin infusion for treatment of NSTEMI. Patient admitted under our services with consultation to cardiology. Troponins trended overnight resulting at 0.057, 0.059, and 0.049. Cardiology took patient for cardiac cath on 03/14/2024 resulting in successful stenting of mid LAD. Echocardiogram was completed showing preserved EF of 55 to 60% with mild mitral and tricuspid regurgitation. Patient is cleared from medical perspective for discharge. Patient strongly encouraged to refrain from smoking, alcohol use, and making many diet and lifestyle modifications. Patient to follow-up outpatient with PCP in 1 to 2 days and with expressive music therapist in 1 week. Physical exam: Vital signs reviewed and stable. General: Nontoxic, no distress and appears stated age. Derm: Skin warm and dry, normal coloration for ethnicity. Head: Atraumatic, normocephalic and symmetric. Eyes: EOM's intact, no lid lag, and anicteric sclera Mouth: no lip lesions, mucus membranes moist Cardiovascular: regular rate and rhythm with normal S1S2, no murmur, positive posterior tibial pulses bilaterally, and cap refill < 2 seconds. Lungs: Respirations even, regular, and unlabored on room air. Lungs CTA bilaterally, no rhonchi, no rales, no wheezing, and no accessory muscle usage. Abdominal: soft, nontender to palpation, no guarding, no appreciable organomegaly Ext: ROM intact. No gross muscle atrophy, no edema, no contractures Neuro: Speech clear, face symmetrical and CN II-XII grossly intact with no noted focal neuro deficits Psych: Alert and oriented to person, place, time, and situation. Appropriate and pleasant affect. A total of 35 minutes of time were spent preparing this complex discharge summary. Pt was discharged on 03/14/2024 at 1546 Patient was seen independently by Nurse Practitioner. This document was prepared using [employer] dictation software. Please allow for errors in plastic tubing insulation supervisor while rare they do occur. I reviewed the documentation as provided by the SHABANA above, who is the original author of this note. I agree with the documented assessment and plan, with the following changes: none Patient Condition at Discharge: Stable Plan - Discharge Summary Discharge Rx Participant: No New Discharge Prescriptions: New Aspirin 81 mg PO DAILY 30 Days #30 tab Ticagrelor [Brilinta] 90 mg PO BID 30 Days #60 tab Atorvastatin [Lipitor] 80 mg PO DAILY 30 Days #30 tab Pantoprazole [Protonix] 40 mg PO DAILY 30 Days #30 tab Metoprolol Tartrate [Lopressor] 12.5 mg PO BID 30 Days #60 tab Discharge Medication List Aspirin 81 mg PO DAILY 30 Days #30 tab 03/15/24 [Rx] Atorvastatin [Lipitor] 80 mg PO DAILY 30 Days #30 tab 03/15/24 [Rx] Metoprolol Tartrate [Lopressor] 12.5 mg PO BID 30 Days #60 tab 03/15/24 [Rx] Pantoprazole [Protonix] 40 mg PO DAILY 30 Days #30 tab 03/15/24 [Rx] Ticagrelor [Brilinta] 90 mg PO BID 30 Days #60 tab 03/15/24 [Rx] Follow up Appointment(s)/Referral(s): Andre Fields DO [REFERRING] - 03/17/24 8:20 am Betito Jovel MD [STAFF PHYSICIAN] - 03/18/24 2:45 pm Patient Instructions/Handouts: *Surgery [facility] - After Heart Catheterization - Wine Blender Instructions, Heart Attack (DC), Chest Pain (DC) Activity/Diet/Wound Care/Special Instructions: Activity: As tolerated. Take breaks as needed. Diet: Heart healthy and carb consistent diet. Avoid salts, or foods with hidden salts such as canned or boxed foods and frozen dinners. Extra salt makes your heart work harder and traps the fluid in your body for longer. Special Instructions: Take all of your medications as directed and remember to keep all of your doctor's appointments and follow-up as needed. Remember, as we discussed her hemoglobin A1c is elevated at 6.1% it was recommended discharge home with glucometer and metformin you have opted against this and have chosen to work on lifestyle modifications with diet and exercise. Highly recommend outpatient follow-up with your PCP in 3 months for repeat hemo globin A1c level to ensure improvement. Strongly recommend refraining from any smoking or alcohol use. Thank you for allowing us to participate in your care, it was truly a pleasure having you for our patient!!! Discharge Disposition: HOME SELF-CARE
--- NOTE | 2024-03-22 17:09 | CONS ---
CONSULTATION Rosendo is a 63-year-old gentleman who is admitted to hospital with acute uos-BK-wkntwdk elevation MN and underwent cardiac catheterization that revealed severe focal stenosis in the LAD and underwent angioplasty of the same. An echocardiogram on him revealed normal LV systolic function and normal wall motion. This morning patient is doing well and is free of symptoms. He is on aspirin, Lipitor, Lopressor 12.5 b.i.d., Brilinta 90 mg b.i.d., subcu nitroglycerin on p.r.n. basis. PHYSICAL EXAMINATION: GENERAL: Comfortable at rest. VITAL SIGNS: Stable. CHEST: Good air entry bilaterally. HEART: First and second heart sounds. No gallop. No murmur. ABDOMEN: Soft, nontender. EXTREMITIES: Did not reveal any edema. Peripheral pulses are felt. LABORATORY DATA: Labs show a hemoglobin of 15.1, platelet count is 254, potassium is 4.3, creatinine is 0.9. ASSESSMENT AND PLAN: Acute ygf-CA-vozvkeq elevation myocardial infarction, status post catheterization and angioplasty of the left anterior descending. PLAN: The patient is stable for discharge. He will return to work tomorrow and he will follow up with me on Thursday. MMODL / IJN: [id number] /
== END 2024-03-15 16:08 | disposition home or self-care (01) | DRG 322 ==
LOC: EC 12:57 → 3SCARD 15:25 → OBSVTOIN 17:25
PROVIDERS: ADMIT Student in an Organized Health Care Education/Training Program; ATTEND Student in an Organized Health Care Education/Training Program
PROC: 027034Z Dilation of Coronary Artery, One Artery with Drug-eluting Intraluminal Device, Percutaneous Approach (ICD-10-PCS; principal; 2024-03-14 16:15)
PROC: 4A023N7 Measurement of Cardiac Sampling and Pressure, Left Heart, Percutaneous Approach (ICD-10-PCS; 2024-03-14 16:15)
PROC: B240ZZ3 Ultrasonography of Single Coronary Artery, Intravascular (ICD-10-PCS; 2024-03-14 16:15)
PROC: B2111ZZ Fluoroscopy of Multiple Coronary Arteries using Low Osmolar Contrast (ICD-10-PCS; 2024-03-14 16:15)
DX: I21.4 Non-ST elevation (NSTEMI) myocardial infarction (principal); K51.90 Ulcerative colitis, unspecified, without complications; F17.200 Nicotine dependence, unspecified, uncomplicated; E78.5 Hyperlipidemia, unspecified; I25.10 Atherosclerotic heart disease of native coronary artery without angina pectoris; J44.9 Chronic obstructive pulmonary disease, unspecified; Z79.82 Long term (current) use of aspirin; Z28.21 Immunization not carried out because of patient refusal; M10.9 Gout, unspecified; I08.1 Rheumatic disorders of both mitral and tricuspid valves; R79.1 Abnormal coagulation profile; Z88.5 Allergy status to narcotic agent; Z79.02 Long term (current) use of antithrombotics/antiplatelets
CPT/HCPCS: 93005; 96365; 99291

== ENCOUNTER → 2024-05-23 | Outpatient (CLI) | payer BC ==
--- NOTE | 2024-05-23 18:16 | CT ---
EXAMINATION TYPE: CT abdomen pelvis w con DATE OF EXAM: 05/23/2024 5:59 PM COMPARISON: 09/30/2023 CLINICAL INDICATION: Male, 63 years old with history of K51.90 ULCERATIVE COLITIS; ULCERATIVE COLITIS TECHNIQUE: Axial CT abdomen pelvis w con;Sagittal and coronal reformats were created on a separate w orkstation. Contrast used:100 mL of Isovue 300 with IV Contrast, (none if empty) Oral contrast used: with Oral Contrast (none if empty) CT DLP: 1068.5 mGycm, Automated exposure control for dose reduction was used. FINDINGS: LOWER CHEST: Bilateral posterior [place] fat-containing hernias. ABDOMEN LIVER: Unremarkable GALLBLADDER AND BILE DUCTS: Unremarkable. PANCREAS: Unremarkable. SPLEEN: Unremarkable. ADRENAL GLANDS: Unremarkable. KIDNEYS AND URETERS: No evidence of hydronephrosis or renal calculus. The ureters are unremarkable. PELVIS BLADDER: No evidence for wall thickening or mass given limitations of exam. REPRODUCTIVE: Unremarkable. ABDOMEN & PELVIS STOMACH AND BOWEL: Frontal thickening of the sigmoid colon with fat stranding changes multiple lymph nodes. No evidence of bowel obstruction. The appendix is normal. PERITONEUM/RETROPERITONEUM: No evidence of pneumoperitoneum or free fluid. VASCULATURE: No evidence of aortic aneurysm. MUSCULOSKELETAL: No acute osseous abnormalities LYMPH NODES: No gross evidence for lymphadenopathy. SOFT TISSUE/ABDOMINAL WALL: Unremarkable IMPRESSION: Colitis involving the sigmoid colon. No evidence of sparing of the rectum. No evidence for perforatio n or organizing fluid collection. [facility], , 05/23/2024 6:14 PM
[2024-05-23 19:15] LABS: Appearance,Urine Clear (Clear); Bilirubin,Urine Negative (Negative); Blood,Urine Trace (Negative); Calcium Oxalate Crystals,Urine Rare /hpf; Color,Urine Yellow; Glucose,Urine (UA) Negative (Negative); Hyaline Casts,Urine 3 /lpf (0-2); Ketones,Urine Trace (Negative); Leukocyte Esterase,Urine Negative (Negative); Mucus,Urine Few /hpf; Nitrite,Urine Negative (Negative); Protein,Urine 1+ (Negative); RBC,Urine 10 /hpf (0-5); Specific Gravity,Urine 1.028 (1.001-1.035); Squamous Epithelial Cell,Urine <1 /hpf (0-4); WBC,Urine <1 /hpf (0-5)
== END | disposition home or self-care (01) ==
LOC: RADCTMAIN 15:38
PROVIDERS: ATTEND Internal Medicine
DX: K51.90 Ulcerative colitis, unspecified, without complications (principal)
CPT/HCPCS: 74177; 36415; Q9967; 81001

== ENCOUNTER 2024-05-27 09:11 | Emergency (ER) | payer BC ==
[2024-05-27 09:24] VITALS: TEMP 98.6
--- NOTE | 2024-05-27 09:58 | ED ---
General Adult HPI - General Chief complaint: Abdominal Pain Stated complaint: cholitis pain Time Seen by Provider: 05/27/24 09:35 Source: patient, RN notes reviewed, old records reviewed Mode of arrival: ambulatory Limitations: no limitations - History of Present Illness Initial comments: This is a 63-year-old male who presents to the emergency department the past medical significant for ulcerative colitis and a recent heart attack. Patient states he has been having abdominal pain for a while and recently had a CAT scan and it showed colitis. Patient states he has been given 2 medications for his colitis but he is not taking either of them. Patient states the pain is worse today and he did have some vomiting earlier today. Patient denies any chest pain difficulty breathing shortness of breath. Patient has any palpitations. Patient denies any fever chills or cough - Related Data Previous Rx's Medication Instructions Recorded Aspirin 81 mg PO DAILY 30 Days #30 tab 03/15/24 Atorvastatin [Lipitor] 80 mg PO DAILY 30 Days #30 tab 03/15/24 Metoprolol Tartrate [Lopressor] 12.5 mg PO BID 30 Days #60 tab 03/15/24 Pantoprazole [Protonix] 40 mg PO DAILY 30 Days #30 tab 03/15/24 Ticagrelor [Brilinta] 90 mg PO BID 30 Days #60 tab 03/15/24 predniSONE [Deltasone] 40 mg PO DAILY #8 tab 05/27/24 Allergies Allergy/AdvReac Type Severity Reaction Status Date / Time codeine Allergy Unknown Verified 05/27/24 09:23 Review of Systems ROS Statement: Those systems with pertinent positive or pertinent negative responses have been documented in the HPI. ROS Other: All systems not noted in ROS Statement are negative. Past Medical History Additional Past Medical History / Comment(s): COLITIS, gout History of Any Multi-Drug Resistant Organisms: None Reported Past Surgical History: Heart Catheterization With Stent Past Psychological History: No Psychological Hx Reported Past Alcohol Use History: Daily Past Drug Use History: Marijuana General Exam - General Exam Comments Initial Comments: GENERAL: Patient is well-developed and well-nourished. Patient is nontoxic and well- hydrated and is in mild distress. ENT: Neck is soft and supple. No significant lymphadenopathy is noted. Oropharynx is clear. Moist mucous membranes. Neck has full range of motion without eliciting any pain. EYES: The sclera were anicteric and conjunctiva were pink and moist. Extraocular movements were intact and pupils were equal round and reactive to light. Eyel ids were unremarkable. PULMONARY: Unlabored respirations. Good breath sounds bilaterally. No audible rales rhonchi or wheezing was noted. CARDIOVASCULAR: There is a regular rate and rhythm without any murmurs gallops or rubs. ABDOMEN: Tenderness in the left lower quadrant and suprapubic abdominal pain SKIN: Skin is clear with no lesions or rashes and otherwise unremarkable. NEUROLOGIC: Patient is alert and oriented x3. Cranial nerves II through XII are grossly intact. Motor and sensory are also intact. Normal speech, volume and content. Symmetrical smile. MUSCULOSKELETAL: Normal extremities with adequate strength and full range of motion. LYMPHATICS: No significant lymphadenopathy is noted PSYCHIATRIC: Normal psychiatric evaluation. Limitations: no limitations Course Vital Signs 05/27/24 09:21 Temperature 98.6 F Pulse Rate 83 Respiratory 16 Rate Blood Pressure 135/82 O2 Sat by Pulse 97 Oximetry Medical Decision Making - Medical Decision Making Was pt. sent in by a medical professional or institution (, PA, SURVEILLANCE SENSOR OPERATOR, urgent care, hospital, or residential...) When possible be specific @ -No Did you speak to anyone other than the patient for history (EMS, parent, family, police, friend...)? What history was obtained from this source @ -No Did you review nursing and triage notes (agree or disagree)? Why? @ -I reviewed and agree with nursing and triage notes Were old charts reviewed (outside hosp., previous admission, EMS record, old EKG, old radiological studies, urgent care reports/EKG's, residential records)? Report findings @ -No old charts were reviewed Differential Diagnosis? @ -Differential Abdominal Pain Men: Appendicitis, cholecystitis, diverticulosis, ischemic bowel, pancreatitis, hepatitis, UTI, gastroenteritis, AAA, incarcerated hernia, bowel obstruction, constipation, inflammatory bowel, hepatitis, peptic ulcer disease, splenic infarction, perforated viscus, testicular torsion, this is not meant to be an all-inclusive list EKG interpreted by me (3pts min.). @ -As above X-rays interpreted by me (1pt min.). @ -None done CT interpreted by me (1pt min.). @ -None done U/S interpreted by me (1pt. min.). @ -None done What testing was considered but not performed or refused? (CT, X-rays, U/S, labs)? Why? @ -None What meds were considered but not given or refused? Why? @ -None Did you discuss the management of the patient with other professionals (professionals i.e. , PA, SURVEILLANCE SENSOR OPERATOR, lab, RT, psych nurse, health social work professor, business leader, teacher, air intelligence officer, complex case manager)? Give summary @ -I spoke with Dr. Jacob she wanted the patient to be placed on some steroids and continue taking his home meds. Patient is going to need to follow-up on Thursday with Dr. Jacob in the office Was smoking cessation discussed for >3mins.? @ -No Was critical care preformed (if so, how long)? @ -No Were there social determinants of health that impacted care today? How? (Homelessness, low income, unemployed, alcoholism, drug addiction, transportation, low edu. Level, literacy, decrease access to med. care, long term, r ehab)? @ -No Was there de-escalation of care discussed even if they declined (Discuss DNR or withdrawal of care, Hospice)? DNR status @ -No What co-morbidities impacted this encounter? (DM, HTN, Smoking, COPD, CAD, Cancer, CVA, ARF, Chemo, Hep., AIDS, mental health diagnosis, sleep apnea, morbid obesity)? @ -None Was patient admitted / discharged? Hospital course, mention meds given and route, prescriptions, significant lab abnormalities, going to OR and other pertinent info. @ -Patient was given Dilaudid and Solu-Medrol in the emergency department he was feeling considerably better. Spoke with Dr. Jacob and she want to follow-up with the patient on Thursday. She wanted him to go home on steroids and continue his home medications. I did review the patient's CAT scan from a few days ago when he was having the same pain. Undiagnosed new problem with uncertain prognosis? @ -No Drug Therapy requiring intensive monitoring for toxicity (Heparin, Nitro, Insulin, Cardizem)? @ -No Were any procedures done? @ -No Diagnosis/symptom? @ -Colitis Acute, or Chronic, or Acute on Chronic? @ -Acute Uncomplicated (without systemic symptoms) or Complicated (systemic symptoms)? @ -Complicated Side effects of treatment? @ -No Exacerbation, Progression, or Severe Exacerbation? @ -No Poses a threat to life or bodily function? How? (Chest pain, [place], [place], pneumonia, PE, COPD, DKA, ARF, appy, cholecystitis, CVA, Diverticulitis, Homicidal, Suicidal, threat to staff... and all critical care pts) @ -No - Lab Data Result diagrams: 05/27/24 10:08 05/27/24 10:08 Lab Results 05/27/24 05/27/24 05/27/24 Range/Units 10:08 10:08 10:08 WBC 12.6 H (3.8-10.6) k/uL RBC 4.12 L (4.30-5.90) m/uL Hgb 13.1 (13.0-17.5) gm/dL Hct 38.1 L (39.0-53.0) % MCV 92.5 (80.0-100.0) fL MCH 31.8 (25.0-35.0) pg MCHC 34.3 (31.0-37.0) g/dL RDW 12.8 (11.5-15.5) % Plt Count 310 (150-450) k/uL MPV 7.4 Neutrophils % 79 % Lymphocytes % 12 % Monocytes % 6 % Eosinophils % 1 % Basophils % 0 % Neutrophils # 10.0 H (1.3-7.7) k/uL Lymphocytes # 1.5 (1.0-4.8) k/uL Monocytes # 0.8 (0-1.0) k/uL Eosinophils # 0.1 (0-0.7) k/uL Basophils # 0.0 (0-0.2) k/uL Sodium 136 L (137-145) mmol/L Potassium 3.6 (3.5-5.1) mmol/L Chloride 103 (98-107) mmol/L Carbon Dioxide 21 L (22-30) mmol/L Anion Gap 12 mmol/L BUN 12 (9-20) mg/dL Creatinine 0.74 (0.66-1.25) mg/dL Est GFR (CKD-EPI)AfAm >90 (>60 ml/min/1.73 sqM) Est GFR (CKD-EPI)NonAf >90 (>60 ml/min/1.73 sqM) Glucose 107 H (74-99) mg/dL Plasma Lactic Acid Walter 1.0 (0.7-2.0) mmol/L Calcium 8.9 (8.4-10.2) mg/dL Total Bilirubin 0.7 (0.2-1.3) mg/dL AST 22 (17-59) U/L ALT 15 (4-49) U/L Alkaline Phosphatase 64 (38-126) U/L Total Protein 6.6 (6.3-8.2) g/dL Albumin 3.9 (3.5-5.0) g/dL Amylase 48 (30-110) U/L Lipase 82 (23-300) U/L Disposition Clinical Impression: Colitis Disposition: HOME SELF-CARE Condition: Good Instructions (If sedation given, give patient instructions): Colitis (ED) Prescriptions: predniSONE [Deltasone] 40 mg PO DAILY #8 tab Is patient prescribed a controlled substance at d/c from ED?: No Referrals: Andre Fields DO [Primary Care Provider] - 1-2 days Time of Disposition: 12:29
[2024-05-27] MEDS: HYDROmorphone 0.5 MG/0.5 ML SYRINGE IVP STA ×2 (10:15→12:31)
[2024-05-27] MEDS: SODIUM CHLORIDE 0.9% 1,000 ML IV STA (10:18)
[2024-05-27 10:29] LABS: Basophils % (A) 0 %; Eosinophils # (A) 0.1 k/uL (0-0.7); Eosinophils % (A) 1 %; HCT 38.1 % (39.0-53.0); HGB 13.1 gm/dL (13.0-17.5); Lymphocytes # (A) 1.5 k/uL (1.0-4.8); Lymphocytes % (A) 12 %; MCH 31.8 pg (25.0-35.0); MCHC 34.3 g/dL (31.0-37.0); MCV 92.5 fL (80.0-100.0); Mean Platelet Volume 7.4; Monocytes # (A) 0.8 k/uL (0-1.0); Monocytes % (A) 6 %; Neutrophils % (A) 79 %; Platelet Count 310 k/uL (150-450); RBC 4.12 m/uL (4.30-5.90); RDW 12.8 % (11.5-15.5); WBC 12.6 k/uL (3.8-10.6)
[2024-05-27 11:20] LABS: ALT 15 U/L (4-49); AST 22 U/L (17-59); African American GFR (CKD) >90 (>60 ml/min/1.73 sqM); Albumin 3.9 g/dL (3.5-5.0); Alkaline Phosphatase 64 U/L (38-126); Amylase 48 U/L (30-110); Anion Gap 12 mmol/L; Blood Urea Nitrogen 12 mg/dL (9-20); Calcium 8.9 mg/dL (8.4-10.2); Carbon Dioxide 21 mmol/L (22-30); Chloride 103 mmol/L (98-107); Glucose 107 mg/dL (74-99); Lipase 82 U/L (23-300); Non-African American GFR(CKD) >90 (>60 ml/min/1.73 sqM); Potassium 3.6 mmol/L (3.5-5.1); Sodium 136 mmol/L (137-145); Total Bilirubin 0.7 mg/dL (0.2-1.3); Total Protein 6.6 g/dL (6.3-8.2)
[2024-05-27] MEDS: methylPREDNISolone SOD SUCCI 125 MG/2 ML VIAL IV STA (12:32)
[2024-05-27 12:40] VITALS: BP 121/78; PULSE 70; RESP 17
== END 2024-05-27 12:41 | disposition home or self-care (01) ==
LOC: EC 09:11
DX: K52.9 Noninfective gastroenteritis and colitis, unspecified (principal); Z88.5 Allergy status to narcotic agent
CPT/HCPCS: 96376 ×2; 96361 ×2; 96374 ×2; 96375 ×2; 99284; 99283; 36415; 80053; 82150; 83605; 83690; 85025; J1171; J2919

== ENCOUNTER 2025-01-18 00:53 | Emergency (ER) | payer BC ==
[2025-01-18 01:14] VITALS: TEMP 98
--- NOTE | 2025-01-18 03:03 | ED ---
Extremity Problem HPI - General Chief complaint: Extremity Problem,Nontraumatic Stated complaint: swollen foot Time Seen by Provider: 01/18/25 03:00 Source: patient, RN notes reviewed Mode of arrival: ambulatory Limitations: no limitations - History of Present Illness Initial comments: 64-year-old male with history of gout presenting for right great toe redness x 3 days. States this feels similar to previous gout. States he drank 4 beers the night before symptom onset. Denies injury or trauma. Denies fevers, chills, nausea, vomiting. - Related Data Previous Rx's Medication Instructions Recorded Aspirin 81 mg PO DAILY 30 Days #30 tab 03/15/24 Atorvastatin [Lipitor] 80 mg PO DAILY 30 Days #30 tab 03/15/24 Metoprolol Tartrate [Lopressor] 12.5 mg PO BID 30 Days #60 tab 03/15/24 Pantoprazole [Protonix] 40 mg PO DAILY 30 Days #30 tab 03/15/24 Ticagrelor [Brilinta] 90 mg PO BID 30 Days #60 tab 03/15/24 predniSONE [Deltasone] 40 mg PO DAILY #8 tab 05/27/24 Colchicine 0.6 mg PO ONCE #9 tablet 01/18/25 predniSONE [Deltasone] 40 mg PO DAILY #10 tab 01/18/25 Allergies Allergy/AdvReac Type Severity Reaction Status Date / Time codeine Allergy Unknown Verified 01/18/25 01:11 Review of Systems ROS Statement: Those systems with pertinent positive or pertinent negative responses have been documented in the HPI. ROS Other: All systems not noted in ROS Statement are negative. Past Medical History Past Medical History: Hyperlipidemia, Myocardial Infarction (ID) Additional Past Medical History / Comment(s): COLITIS, gout History of Any Multi-Drug Resistant Organisms: None Reported Past Surgical History: Heart Catheterization With Stent Past Psychological History: No Psychological Hx Reported Smoking Status: Light tobacco smoker Past Alcohol Use History: Occasional Past Drug Use History: Marijuana General Exam Limitations: no limitations General appearance: alert, in no apparent distress Head exam: Present: atraumatic, normocephalic, normal inspection Right Lower Leg exam: Present: normal inspection, full ROM. Absent: tenderness, swell ing Ankle exam: Present: normal inspection, full ROM. Absent: tenderness, swelling Foot/Toe exam: Present: full ROM, tenderness, swelling, erythema. Absent: normal inspection (Erythema, warmth, and tenderness to medial aspect of right great toe), abrasion, deformity, puncture wound Neurovascular tendon exam: Present: no vascular compromise. Absent: pulse deficit, abnormal cap refill, motor deficit Psychiatric exam: Present: normal affect, normal mood Skin exam: Present: warm, dry, intact, normal color. Absent: rash Course Vital Signs 01/18/25 01:11 Temperature 98.0 F Pulse Rate 80 Respiratory 16 Rate Blood Pressure 139/77 O2 Sat by Pulse 96 Oximetry Medical Decision Making - Medical Decision Making Was pt. sent in by a medical professional or institution (, PA, FARM ASSISTANT, urgent care, hospital, or intermediate...) When possible be specific @ -No Did you speak to anyone other than the patient for history (EMS, parent, family, police, friend...)? What history was obtained from this source @ -No Did you review nursing and triage notes (agree or disagree)? Why? @ -I reviewed and agree with nursing and triage notes Were old charts reviewed (outside hosp., previous admission, EMS record, old EKG, old radiological studies, urgent care reports/EKG's, intermediate records)? Report findings @ -Lab work in 2023 reviewed, renal function normal Differential Diagnosis (chest pain, altered mental status, abdominal pain women, abdominal pain men, vaginal bleeding, weakness, fever, dyspnea, syncope, headache, dizziness, GI bleed, back pain, seizure, CVA, palpatations, mental health, musculoskeletal)? @ -Differential Musculoskeletal Muscular strain, contusion, ligament sprain, fracture, arthritis, septic arthritis, bursitis, cellulitis, muscle spasm, nerve compression, DVT, arterial occlusion, herpes zoster, electrolyte abnormality, tumor.... This is not meant to be in all inclusive list EKG interpreted by me (3pts min.). @ -None X-rays interpreted by me (1pt min.). @ -None done CT interpreted by me (1pt min.). @ -None done U/S interpreted by me (1pt. min.). @ -None done What testing was considered but not performed or refused? (CT, X-rays, U/S, labs)? Why? @ -None What meds were considered but not given or refused? Why? @ -None Did you discuss the management of the patient with other professionals (professionals i.e. , PA, FARM ASSISTANT, lab, RT, psych nurse, social science teacher, grizzly worker, teacher, pharmaceutical officer, case monitor)? Give summary @ -No Was smoking cessation discussed for >3mins.? @ -No Was critical care preformed (if so, how long)? @ -No Were there social determinants of health that impacted care today? How? (Homelessness, low income, unemployed, alcoholism, drug addiction, transportation, low edu. Level, literacy, decrease access to med. care, correction, rehab)? @ -No Was there de-escalation of care discussed even if they declined (Discuss DNR or withdrawal of care, Hospice)? DNR status @ -No What co-morbidities impacted this encounter? (DM, HTN, Smoking, COPD, CAD, Cancer, CVA, ARF, Chemo, Hep., AIDS, mental health diagnosis, sleep apnea, morbid obesity)? @ -None Was patient admitted / discharged? Hospital course, mention meds given and route, prescriptions, significant lab abnormalities, going to OR and other pertinent info. @ -Discharge. 64-year-old male with history of gout presenting for nontraumatic right great toe pain x 3 days. Neurovascularly intact. Denies fevers, chills, or sign of bacterial infection. Patient was given dose of IM Toradol and Solu- Medrol. Provided with outpatient prescription for colchicine and prednisone. Appropriate return precautions and follow-up care discussed. Case was discussed with my ED attending Dr. Colbert. Undiagnosed new problem with uncertain prognosis? @ -No Drug Therapy requiring intensive monitoring for toxicity (Heparin, Nitro, Insulin, Cardizem)? @ -No Were any procedures done? @ -No Diagnosis/symptom? @ -Gout right great toe Acute, or Chronic, or Acute on Chronic? @ -Acute Uncomplicated (without systemic symptoms) or Complicated (systemic symptoms)? @ -Uncomplicated Side effects of treatment? @ -No Exacerbation, Progression, or Severe Exacerbation? @ -No Poses a threat to life or bodily function? How? (Chest pain, [place], ID, pneumonia, PE, COPD, DKA, ARF, appy, cholecystitis, CVA, Diverticulitis, Homicidal, Suicidal, threat to staff... and all critical care pts) @ -No Disposition Clinical Impression: Gout involving toe of right foot Disposition: HOME SELF-CARE Condition: Stable Instructions (If sedation given, give patient instructions): Gout (ED) Additional Instructions: Take colchicine and prednisone as directed. Please return to the Emergency Department if symptoms worsen or any other concerns. Prescriptions: Colchicine 0.6 mg PO ONCE #9 tablet predniSONE [Deltasone] 40 mg PO DAILY #10 tab Is patient prescribed a controlled substance at d/c from ED?: No Referrals: None,Stated [Primary Care Provider] - 1-2 days Time of Disposition: 03:31
[2025-01-18] MEDS: KETOROLAC 15 MG/ML 1 ML VIAL IM STA (03:40)
[2025-01-18] MEDS: methylPREDNISolone SOD SUCCI 125 MG/2 ML VIAL IM ONE (03:45)
[2025-01-18 03:53] VITALS: BP 156/87; PULSE 85; RESP 18
== END 2025-01-18 03:55 | disposition home or self-care (01) ==
LOC: EC 00:53
DX: M10.071 Idiopathic gout, right ankle and foot (principal); Z88.5 Allergy status to narcotic agent; F17.200 Nicotine dependence, unspecified, uncomplicated
CPT/HCPCS: 99284; 96372; J1885; J2919